=== PATIENT | male | born 1970 | race Caucasian/White ===

== ENCOUNTER 2017-06-30 13:47 | Inpatient (IN) | payer OTHER ==
[2017-06-30 14:25] VITALS: BMI 28.7
--- NOTE | 2017-06-30 17:58 | HP ---
CIWA Score - CIWA Score Nausea/Vomitin Muscle Tremors: 3 Anxiety: 2 Agitation: 1-Slight > Activity Paroxysmal Sweats: 2 Orientation: 0-Oriented Tacttile Disturbances: 1-Very Mild Itch/Numbness Auditory Disturbances: 1-Very Mild Visual Disturbances: 1-Very Mild Sensitivity Headache: 2-Mild CIWA-Ar Total Score: 15 Admission ROS BHS - HPI Chief Complaint: WITHDRAWAL SYMPTOMS Allergies/Adverse Reactions: Allergies Allergy/AdvReac Type Severity Reaction Status Date / Time No Known Allergies Allergy Verified 06/30/17 17:03 History of Present Illness: 46 Y.O. MAN WITH AN EXTENSIVE HISTORY OF ALCOHOL, COCAINE, MARIJUANA AND XANAX DEPENDENCE IS HERE SEEKING DETOX. HE DOES NOT RECALL HAS LAST DETOX ADMISSION. LONGEST PERIOD CLEAN HAS BEEN 3 YEARS. Exam Limitations: No Limitations - Ebola screening Have you traveled outside of the country in the last 21 days: No Have you had contact with anyone from an Ebola affected area: No Have you been sick,other than usual withdrawal symptoms: No Do you have a fever: No - Review of Systems Constitutional: Chills, Diaphoresis, Night Sweats EENT: reports: Blurred Vision Respiratory: reports: No Symptoms reported Cardiac: reports: No Symptoms Reported GI: reports: Nausea : reports: No Symptoms Reported Musculoskeletal: reports: Back Pain, Joint Pain Integumentary: reports: No Symptoms Reported Neuro: reports: Tremors Endocrine: reports: No Symptoms Reported Hematology: reports: No Symptoms Reported Psychiatric: reports: Orientated x3, Depressed Other Systems: Reviewed and Negative Patient History - Patient Medical History Hx Anemia: No Hx Asthma: Yes Hx Chronic Obstructive Pulmonary Disease (COPD): No Hx Cancer: No Hx Cardiac Disorders: No Hx Congestive Heart Failure: No Hx Hypertension: No Hx Hypercholesterolemia: Yes (used lipitor 5 years ago, was told to d/c it and work on diet and exercise) Hx Pacemaker: No HX Cerebrovascular Accident: No Hx Seizures: No Hx Dementia: No Hx Diabetes: No Hx Gastrointestinal Disorders: Yes (acid reflux) Hx Liver Disease: No Hx Genitourinary Disorders: No Hx Sexually Transmitted Disorders: No Hx Renal Disease (ESRD): No Hx Thyroid Disease: No Hx Human Immunodeficiency Virus (HIV): No (12/10 last) Hx Hepatitis C: No Hx Depression: Yes Hx Suicide Attempt: Yes (Pt tried to overdose in 2012.) Hx Bipolar Disorder: Yes (was also diagnosed in the past ) Hx Schizophrenia: No - Patient Surgical History Past Surgical History: Yes Hx Neurologic Surgery: No Hx Cataract Extraction: No Hx Cardiac Surgery: No Hx Lung Surgery: No Hx Breast Surgery: No Hx Breast Biopsy: No Hx Abdominal Surgery: No Hx Appendectomy: No Hx Cholecystectomy: No Hx Genitourinary Surgery: No Hx Section: No Hx Orthopedic Surgery: Yes (L shoulder fx sx in 2014) Anesthesia Reaction: No - PPD History Previous Implant?: Yes Documented Results: Negative w/o proof Implanted On Prior R Admission?: Yes Date: 12/19/13 Results: 0 mm PPD to be Administered?: Yes - Reproductive History Patient is a Female of Child Bearing Age (11 -55 yrs old): No - Smoking Cessation Smoking history: Current some day smoker Have you smoked in the past 12 months: Yes Aproximately how many cigarettes per day: 1 Cigars Per Day: 0 Hx Chewing Tobacco Use: No Initiated information on smoking cessation: Yes 'Breaking Loose' booklet given: 06/30/17 - Substance & Tx. History Hx Alcohol Use: Yes Hx Substance Use: Yes Substance Use Type: Alcohol, Cocaine, Marijuana, Tranquilizers Hx Substance Use Treatment: Yes (DETOX: DOES NOT RECALL LAST ADMISSION BUT STATES IT WAS MANY YRS AGO ) - Substances Abused Alcohol Route: Oral Frequency: Daily Amount used: 2 6PKS MALT LIQUOR Age of first use: 14 Date of Last Use: 06/29/17 Marijuana/Hashish Route: Smoking Frequency: Daily Amount used: 7-8 BLUNTS Age of first use: 14 Date of Last Use: 06/29/17 Cocaine Route: Inhalation Frequency: Daily Amount used: 2 HITS Age of first use: 18 Date of Last Use: 06/29/17 Alprazolam (Xanax) Route: Oral Frequency: 3-6 times per week Amount used: 6MG Age of first use: 22 Date of Last Use: 06/27/17 Family Disease History - Family Disease History Family Disease History: Diabetes: Grandparent, Father (alcoholic and psych Hx., ,lung cancer), Mother, Heart Disease: Grandparent, CA: Grandparent, Father, Respiratory: Mother, Other: Father Admission Physical Exam BHS - Vital Signs Vital Signs: Vital Signs - 24 hr 06/30/17 14:11 Temperature 97 F L Pulse Rate 90 Respiratory 18 Rate Blood Pressure 146/87 - Physical General Appearance: Yes: Irritable, Anxious HEENTM: Yes: Hearing grossly Normal, Normal ENT Inspection, Normocephalic Respiratory: Yes: Chest Non-Tender, Lungs Clear, Normal Breath Sounds, No Respiratory Distress, No Accessory Muscle Use Neck: Yes: No masses,lesions,Nodules, Trachea in good position Breast: Yes: Breast Exam Deferred Cardiology: Yes: Regular Rhythm, Regular Rate Abdominal: Yes: Normal Bowel Sounds, Non Tender, Flat Genitourinary: Yes: Other (NO COMPLAINTS REPORTED) Back: Yes: Normal Inspection Musculoskeletal: Yes: Joint Stiffness Extremities: Yes: Normal Capillary Refill, Normal Inspection, Normal Range of Motion, Non-Tender Neurological: Yes: Alert, Normal Mood/Affect, Normal Response Integumentary: Yes: Normal Color, Dry, Warm Lymphatic: Yes: Within Normal Limits - Diagnostic (1) Alcohol dependence with uncomplicated withdrawal Current Visit: Yes Status: Chronic (2) Sedative, hypnotic or anxiolytic dependence with withdrawal, uncomplicated Current Visit: Yes Status: Chronic (3) Cocaine dependence, uncomplicated Current Visit: Yes Status: Chronic (4) Cannabis dependence, uncomplicated Current Visit: Yes Status: Chronic (5) GERD (gastroesophageal reflux disease) Current Visit: Yes Status: Chronic Cleared for Admission [facility] - Detox or Rehab [facility] Level of Care: Medically Managed Detox Regimen/Protocol: Valium S Breath Alcohol Content Breath Alcohol Content: 0 Urine Drug Screen - Results Drug Screen Negative: No Urine Drug Screen Results: THC-Marijuana, ERIKA-Cocaine, BZO-Benzodiazepines
[2017-06-30] MEDS ORDERED: MENTHOL/PHENOL 1 EACH UD MM PRN (18:13)
[2017-06-30] MEDS ORDERED: diazePAM 5 MG TABLET PO ONE (18:13)
[2017-06-30] MEDS ORDERED: MAGNESIUM HYDROX 2400MG/30ML ORAL SUSPENSION 30 ML CUP PO PRN (18:13)
[2017-06-30] MEDS ORDERED: MAGNESIUM CITRATE 300 ML BOTTLE PO PRN (18:13)
[2017-06-30] MEDS ORDERED: IBUPROFEN 400 MG TABLET (FP) PO PRN (18:13)
[2017-06-30] MEDS ORDERED: LOPERAMIDE HCL 2 MG CAPSULE PO PRN (18:13)
[2017-06-30] MEDS ORDERED: P-EPHED 60MG/TRIPROLIDI 2.5MG TABLET PO PRN (18:13)
[2017-06-30] MEDS ORDERED: MAG HYDROX/AL HYDROX/SIMETH 30 ML UNIT-DOSE CUP PO PRN (18:13)
[2017-06-30] MEDS ORDERED: hydrOXYzine PAMOATE 50 MG CAPSULE (FP) PO PRN (18:13)
[2017-06-30] MEDS ORDERED: ACETAMINOPHEN 325 MG TABLET (FP) PO PRN (18:13)
[2017-06-30] MEDS ORDERED: guaiFENesin/D-METHORPHAN HB 10 ML UNIT-DOSE CUPS PO PRN (18:13)
[2017-06-30] MEDS ORDERED: ALBUTEROL SO4 18 GM HFA INHALER IH PRN (18:15)
[2017-06-30] MEDS: diazePAM 5 MG TABLET PO SCH (22:41)
[2017-06-30] MEDS: THIAMINE HCL 100 MG TABLET (FP) PO SCH (22:41)
[2017-06-30 22:45] LABS: URINE APPEARANCE CLEAR; URINE BILIRUBIN NEGATIVE (<2.0 mg/dL); URINE BLOOD NEGATIVE (NEGATIVE); URINE COLOR LTYELLOW; URINE GLUCOSE (UA) NEGATIVE (NEGATIVE); URINE KETONE NEGATIVE (NEGATIVE); URINE LEUK ESTERASE NEGATIVE (NEGATIVE); URINE NITRITE NEGATIVE (NEGATIVE); URINE PROTEIN NEGATIVE (NEGATIVE); URINE UROBILINOGEN NEGATIVE mg/dL (0.2-1.0)
[2017-06-30] MEDS ORDERED: ZOLPIDEM TARTRATE 10 MG TABLET (PARK CARE ONLY) PO ONE (23:00)
[2017-07-01] MEDS: diazePAM 5 MG TABLET PO SCH ×3 (05:19→22:28)
[2017-07-01] MEDS: PANTOPRAZOLE 40 MG TABLET (FP) PO SCH (09:58)
[2017-07-01] MEDS: diazePAM 5 MG TABLET PO PRN (09:58)
[2017-07-01] MEDS: PRENATAL VITAMINS W/ FOLIC ACID TABLET (FP) PO SCH (09:59)
[2017-07-01 10:18] LABS: HEMATOCRIT 43.2 % (35.4-49); HEMOGLOBIN 14.3 GM/dL (11.7-16.9); MCH 28.2 pg (25.7-33.7); MCHC 33.2 g/dl (32.0-35.9); MEAN CELL VOLUME 84.8 fl (80-96); MEAN PLT VOLUME 8.8 fl (7.5-11.1); PLATELET COUNT 192 K/MM3 (134-434); RBC 5.09 M/mm3 (4.00-5.60); RDW 13.7 % (11.9-15.9); WHITE BLOOD COUNT 7.4 K/mm3 (4.0-10.0)
[2017-07-01 10:58] LABS: ALBUMIN 3.7 g/dl (3.4-5.0); ANION GAP 11 (8-16); BLOOD UREA NITROGEN 10 mg/dL (7-18); CHLORIDE 102 mmol/L (98-107); CO2 27 mmol/L (21-32); CREATININE 0.8 mg/dL (0.7-1.3); GLUCOSE,RANDOM 91 mg/dL (74-106); POTASSIUM 4.4 mmol/L (3.5-5.1); SGOT/AST 20 U/L (15-37); SGPT/ALT 21 U/L (12-78); SODIUM 140 mmol/L (136-145)
[2017-07-01 11:00] LABS: ALK PHOS 114 U/L (45-117); BILIRUBIN,TOTAL 0.6 mg/dL (0.2-1.0); TOT PROT 7.2 g/dl (6.4-8.2)
--- NOTE | 2017-07-01 11:07 | EKG ---
Test Reason : Blood Pressure : / mmHG Vent. Rate : 074 BPM Atrial Rate : 074 BPM P-R Int : 140 ms QRS Dur : 084 ms QT Int : 420 ms P-R-T Axes : 060 047 043 degrees QTc Int : 466 ms NORMAL SINUS RHYTHM NORMAL ECG WHEN COMPARED WITH ECG OF 30-JUN-2017 20:18, NO SIGNIFICANT CHANGE WAS FOUND Confirmed by PORFIRIO DELGADILLO MD ([id number]) on 07/01/2017 11:07:28 AM Referred By: Confirmed By:PORFIRIO DELGADILLO MD
--- NOTE | 2017-07-01 11:07 | EKG ---
Test Reason : Blood Pressure : / mmHG Vent. Rate : 091 BPM Atrial Rate : 091 BPM P-R Int : 140 ms QRS Dur : 078 ms QT Int : 392 ms P-R-T Axes : 071 050 054 degrees QTc Int : 482 ms NORMAL SINUS RHYTHM PROLONGED QT ABNORMAL ECG NO PREVIOUS ECGS AVAILABLE Confirmed by ELIE BERNABE, PORFIRIO ([id number]) on 07/01/2017 11:07:33 AM Referred By: Confirmed By:PORFIRIO DELGADILLO MD
--- NOTE | 2017-07-01 11:30 | CONSULT ---
[facility] Psychiatric Consult - Data Date of interview: 07/01/17 Admission source: [facility] Identifying data: Pt. is a 46 year old single male, without kids, disabled, currently homeless and not receiving any financial assistance. This is one of multiple admissions for patient. Pt. admitted to detox for alcohol , cannabis, cocaine and benzodiazepine dependence. Substance Abuse History: - Smoking Cessation. Smoking history: Former smoker. Have you smoked in the past 12 months: Yes. Aproximately how many cigarettes per day: 2. Cigars Per Day: 0. Hx Chewing Tobacco Use: No. Initiated information on smoking cessation: Yes. 'Breaking Loose' booklet given: . - Substance & Tx. History. Hx Alcohol Use: Yes. Hx Substance Use: Yes. Substance Use Type: Alcohol, Cocaine, Marijuana. Hx Substance Use Treatment: Yes (DETOX AND REHAB: 02/2016). - Substances Abused. Cocaine. Route: Inhalation. Frequency: 3-6 times per week. Amount used: 2 GRAMS. Age of first use: 23. Date of Last Use: 06/29/17. etoh. Route: Oral. Frequency: Daily. Amount used: 1 pint. Age of first use: 12. Date of Last Use: . MARIJUANA. Route: Smoking. Frequency: 1-2 times per week. Amount used : 1/2 OZ. Age of first use: 12. Date of Last Use: 06/29/17 Medical History: Asthma, hypercholesterolemia, Acid reflux Psychiatric History: Pt. presents with an unclear psychiatric history, unable to give a cohesive history of his psychiatric history. Pt. reports h/o "alot" of psychiatric hospitalization. Most recently at a hospital in [place] "years ago."Pt. denies h/o outpatient care. States he has a history of depression and has been on "all the medications." Pt denies h/o suicide attempt. Pt. currently denies suicidal and homcidial ideation. Pt. concluded our conversation by stating " i don't want any medications." As per entries from Dr. Salter and Dr. Carlos, patient has a history of Bipolar disorder and has a history of nonadherence to medications and outpatient care. Physical/Sexual Abuse/Trauma History: Denies. Mental Status Exam - Mental Status Exam Alert and Oriented to: Time, Place, Person Cognitive Function: Good Patient Appearance: Unkempt Mood: Withdrawn Affect: Mood Congruent Patient Behavior: Fatigued, Guarded, Asleep (Pt. able to complete interview when awaken) Speech Pattern: Delayed Voice Loudness: Moderately Soft/Quiet Thought Process: Goal Oriented Thought Disorder: Not Present Hallucinations: Denies Suicidal Ideation: Denies Homicidal Ideation: Denies Insight/Judgement: Poor Sleep: Fair Appetite: Fair Muscle strength/Tone: Normal Gait/Station: Other (Did not observe patient's gait.) Psychiatric Findings - Problem List ([place] 1, 2,3) (1) Alcohol dependence with uncomplicated withdrawal Current Visit: Yes Status: Acute (2) Cannabis dependence, uncomplicated Current Visit: Yes Status: Acute (3) Cocaine dependence, uncomplicated Current Visit: Yes Status: Acute (4) Sedative, hypnotic or anxiolytic dependence with withdrawal, uncomplicated Current Visit: Yes Status: Acute (5) Substance induced mood disorder Current Visit: Yes Status: Acute (6) Bipolar II disorder Current Visit: No Status: Chronic Comment: history. - Initial Treatment Plan Initial Treatment Plan: Psychoeducation provided. Detoxification provided. Observation.
--- NOTE | 2017-07-01 16:52 | PN ---
[facility] CIWA - CIWA Score Nausea/Vomitin-No Nausea/No Vomiting Muscle Tremors: 3 Anxiety: 4-Mod. Anxious/Guarded Agitation: 1-Slight > Activity Paroxysmal Sweats: 3 Orientation: 0-Oriented Tacttile Disturbances: 3-Moderate Itch/Numb/Burn Auditory Disturbances: 0-None Visual Disturbances: 2-Mild Sensitivity Headache: 0-None Present CIWA-Ar Total Score: 16 BHS Progress Note (SOAP) Subjective: Sweating, Tremors, Body Aches, Anxious. Objective: PATIENT A & O X 3. NO ACUTE DISTRESS. 07/01/17 16:53 Vital Signs Temperature 97.2 F L 07/01/17 14:11 Pulse Rate 88 07/01/17 14:11 Respiratory Rate 18 07/01/17 14:11 Blood Pressure 132/90 07/01/17 14:11 O2 Sat by Pulse Oximetry (%) Laboratory Tests 06/30/17 07/01/17 07/01/17 22:30 07:00 07:00 WBC 7.4 RBC 5.09 Hgb 14.3 Hct 43.2 MCV 84.8 MCH 28.2 MCHC 33.2 RDW 13.7 Plt Count 192 MPV 8.8 Sodium Potassium Chloride Carbon Dioxide Anion Gap BUN Creatinine Creat Clearance w eGFR Random Glucose Calcium Total Bilirubin AST ALT Alkaline Phosphatase Total Protein Albumin Urine Color Ltyellow Urine Appearance Clear Urine pH 5.0 Ur Specific [place] 1.032 Urine Protein Negative Urine Glucose (UA) Negative Urine Ketones Negative Urine Blood Negative Urine Nitrite Negative Urine Bilirubin Negative Urine Urobilinogen Negative Ur Leukocyte Esterase Negative RPR Titer HIV 1&2 Antibody Screen Negative HIV P24 Antigen Negative 07/01/17 07/01/17 07:00 07:00 WBC RBC Hgb Hct MCV MCH MCHC RDW Plt Count MPV Sodium 140 Potassium 4.4 Chloride 102 Carbon Dioxide 27 Anion Gap 11 BUN 10 Creatinine 0.8 D Creat Clearance w eGFR > 60 Random Glucose 91 Calcium 9.0 Total Bilirubin 0.6 AST 20 ALT 21 D Alkaline Phosphatase 114 D Total Protein 7.2 Albumin 3.7 Urine Color Urine Appearance Urine pH Ur Specific [place] Urine Protein Urine Glucose (UA) Urine Ketones Urine Blood Urine Nitrite Urine Bilirubin Urine Urobilinogen Ur Leukocyte Esterase RPR Titer Nonreactive HIV 1&2 Antibody Screen HIV P24 Antigen LABS NOTED. Assessment: 07/01/17 16:53 WITHDRAWAL SYMPTOMS. Plan: CONTINUE DETOX.
[2017-07-01] MEDS: THIAMINE HCL 100 MG TABLET (FP) PO SCH (22:28)
[2017-07-01] MEDS: MELATONIN 5 MG TABLETS PO PRN (22:28)
[2017-07-02] MEDS: diazePAM 5 MG TABLET PO SCH ×2 (10:25→22:33)
[2017-07-02] MEDS: PRENATAL VITAMINS W/ FOLIC ACID TABLET (FP) PO SCH (10:25)
[2017-07-02] MEDS: PANTOPRAZOLE 40 MG TABLET (FP) PO SCH (10:26)
[2017-07-02] MEDS ORDERED: TETRAHYDROZOLINE HCL EYE DROPS OU ONE (10:30)
--- NOTE | 2017-07-02 11:37 | PN ---
S CIWA - CIWA Score Nausea/Vomitin-No Nausea/No Vomiting Muscle Tremors: 4-Moderate,w/Arms Extend Anxiety: 5 Agitation: 4-Moderately Restless Paroxysmal Sweats: 1-Minimal Palms Moist Orientation: 0-Oriented Tacttile Disturbances: 0-None Auditory Disturbances: 0-None Visual Disturbances: 0-None Headache: 0-None Present CIWA-Ar Total Score: 14 BHS Progress Note (SOAP) Subjective: ANXIETY,IRRITABILITY,AGITATIONS,EYE IRRITATION/DRY EYES, BODY ACHES, HEARTBURN Objective: 07/02/17 11:35 Vital Signs Temperature 97.3 F L 07/02/17 09:19 Pulse Rate 73 07/02/17 09:19 Respiratory Rate 18 07/02/17 09:19 Blood Pressure 141/89 07/02/17 09:19 O2 Sat by Pulse Oximetry (%) Laboratory Last Values WBC 7.4 K/mm3 (4.0-10.0) 07/01/17 07:00 RBC 5.09 M/mm3 (4.00-5.60) 07/01/17 07:00 Hgb 14.3 GM/dL (11.7-16.9) 07/01/17 07:00 Hct 43.2 % (35.4-49) 07/01/17 07:00 MCV 84.8 fl (80-96) 07/01/17 07:00 MCH 28.2 pg (25.7-33.7) 07/01/17 07:00 MCHC 33.2 g/dl (32.0-35.9) 07/01/17 07:00 RDW 13.7 % (11.9-15.9) 07/01/17 07:00 Plt Count 192 K/MM3 (134-434) 07/01/17 07:00 MPV 8.8 fl (7.5-11.1) 07/01/17 07:00 Sodium 140 mmol/L (136-145) 07/01/17 07:00 Potassium 4.4 mmol/L (3.5-5.1) 07/01/17 07:00 Chloride 102 mmol/L (98-107) 07/01/17 07:00 Carbon Dioxide 27 mmol/L (21-32) 07/01/17 07:00 Anion Gap 11 (8-16) 07/01/17 07:00 BUN 10 mg/dL (7-18) 07/01/17 07:00 Creatinine 0.8 mg/dL (0.7-1.3) D 07/01/17 07:00 Creat Clearance w eGFR > 60 (>60) 07/01/17 07:00 Random Glucose 91 mg/dL (74-106) 07/01/17 07:00 Calcium 9.0 mg/dL (8.5-10.1) 07/01/17 07:00 Total Bilirubin 0.6 mg/dL (0.2-1.0) 07/01/17 07:00 AST 20 U/L (15-37) 07/01/17 07:00 ALT 21 U/L (12-78) D 07/01/17 07:00 Alkaline Phosphatase 114 U/L (45-117) D 07/01/17 07:00 Total Protein 7.2 g/dl (6.4-8.2) 07/01/17 07:00 Albumin 3.7 g/dl (3.4-5.0) 07/01/17 07:00 Urine Color Ltyellow 06/30/17 22:30 Urine Appearance Clear 06/30/17 22:30 Urine pH 5.0 (5.0-8.0) 06/30/17 22:30 Ur Specific [place] 1.032 (1.001-1.035) 06/30/17 22:30 Urine Protein Negative (NEGATIVE) 06/30/17 22:30 Urine Glucose (UA) Negative (NEGATIVE) 06/30/17 22:30 Urine Ketones Negative (NEGATIVE) 06/30/17 22:30 Urine Blood Negative (NEGATIVE) 06/30/17 22:30 Urine Nitrite Negative (NEGATIVE) 06/30/17 22:30 Urine Bilirubin Negative (<2.0 mg/dL) 06/30/17 22:30 Urine Urobilinogen Negative mg/dL (0.2-1.0) 06/30/17 22:30 Ur Leukocyte Esterase Negative (NEGATIVE) 06/30/17 22:30 RPR Titer Nonreactive (NONREACTIVE) 07/01/17 07:00 HIV 1&2 Antibody Screen Negative 07/01/17 07:00 HIV P24 Antigen Negative 07/01/17 07:00 Assessment: 04/06/18 11:36 WITHDRAWAL SX Plan: CONTINUE DETOX VISINE EYE DROPS DIRECTED INCREASE MOTRIN 600 MG PO Q6H PRN
[2017-07-02] MEDS: IBUPROFEN 600 MG TABLET (FP) PO PRN (11:41)
[2017-07-02] MEDS: CYCLOBENZAPRINE HCL 10 MG TABLET (FP) PO SCH ×2 (13:16→22:33)
[2017-07-02] MEDS: diazePAM 5 MG TABLET PO PRN (13:19)
[2017-07-02] MEDS: TETRAHYDROZOLINE HCL EYE DROPS OU SCH (22:33)
[2017-07-02] MEDS: MELATONIN 5 MG TABLETS PO PRN (22:34)
[2017-07-02] MEDS: THIAMINE HCL 100 MG TABLET (FP) PO SCH (22:43)
[2017-07-03] MEDS: CYCLOBENZAPRINE HCL 10 MG TABLET (FP) PO SCH ×2 (06:48→22:31)
[2017-07-03] MEDS: diazePAM 5 MG TABLET PO PRN ×2 (09:08→17:59)
[2017-07-03] MEDS: diazePAM 5 MG TABLET PO SCH ×2 (10:18→22:31)
[2017-07-03] MEDS: PANTOPRAZOLE 40 MG TABLET (FP) PO SCH (10:18)
[2017-07-03] MEDS: PRENATAL VITAMINS W/ FOLIC ACID TABLET (FP) PO SCH (10:18)
[2017-07-03] MEDS: TETRAHYDROZOLINE HCL EYE DROPS OU SCH ×2 (10:19→22:31)
[2017-07-03] MEDS ORDERED: CYCLOBENZAPRINE HCL 10 MG TABLET (FP) PO ONE (11:15)
--- NOTE | 2017-07-03 13:42 | PN ---
BHS Progress Note (SOAP) Subjective: Sweating, Body Aches, Anxious, Agitated. Objective: PATIENT A & O X 3, OBSERVED AMBULATING ON UNIT. NO ACUTE DISTRESS. 07/03/17 13:40 Vital Signs Temperature 95.8 F L 07/03/17 11:07 Pulse Rate 75 07/03/17 11:07 Respiratory Rate 18 07/03/17 11:07 Blood Pressure 120/86 07/03/17 11:07 O2 Sat by Pulse Oximetry (%) Laboratory Tests 06/30/17 07/01/17 07/01/17 22:30 07:00 07:00 WBC 7.4 RBC 5.09 Hgb 14.3 Hct 43.2 MCV 84.8 MCH 28.2 MCHC 33.2 RDW 13.7 Plt Count 192 MPV 8.8 Sodium Potassium Chloride Carbon Dioxide Anion Gap BUN Creatinine Creat Clearance w eGFR Random Glucose Calcium Total Bilirubin AST ALT Alkaline Phosphatase Total Protein Albumin Urine Color Ltyellow Urine Appearance Clear Urine pH 5.0 Ur Specific [place] 1.032 Urine Protein Negative Urine Glucose (UA) Negative Urine Ketones Negative Urine Blood Negative Urine Nitrite Negative Urine Bilirubin Negative Urine Urobilinogen Negative Ur Leukocyte Esterase Negative RPR Titer HIV 1&2 Antibody Screen Negative HIV P24 Antigen Negative 07/01/17 07/01/17 07:00 07:00 WBC RBC Hgb Hct MCV MCH MCHC RDW Plt Count MPV Sodium 140 Potassium 4.4 Chloride 102 Carbon Dioxide 27 Anion Gap 11 BUN 10 Creatinine 0.8 D Creat Clearance w eGFR > 60 Random Glucose 91 Calcium 9.0 Total Bilirubin 0.6 AST 20 ALT 21 D Alkaline Phosphatase 114 D Total Protein 7.2 Albumin 3.7 Urine Color Urine Appearance Urine pH Ur Specific [place] Urine Protein Urine Glucose (UA) Urine Ketones Urine Blood Urine Nitrite Urine Bilirubin Urine Urobilinogen Ur Leukocyte Esterase RPR Titer Nonreactive HIV 1&2 Antibody Screen HIV P24 Antigen labs noted. Assessment: 07/03/17 13:40 WITHDRAWAL SYMPTOMS. Plan: CONTINUE DETOX. INCREASE DAILY PO FLUID INTAKE.
[2017-07-03] MEDS: IBUPROFEN 600 MG TABLET (FP) PO PRN (17:59)
[2017-07-03] MEDS: THIAMINE HCL 100 MG TABLET (FP) PO SCH (22:31)
[2017-07-03] MEDS: MELATONIN 5 MG TABLETS PO PRN (22:31)
[2017-07-04] MEDS: CYCLOBENZAPRINE HCL 10 MG TABLET (FP) PO SCH ×2 (05:52→13:33)
[2017-07-04] MEDS ORDERED: diazePAM 5 MG TABLET PO SCH (10:00)
[2017-07-04] MEDS: PANTOPRAZOLE 40 MG TABLET (FP) PO SCH (10:32)
[2017-07-04] MEDS: TETRAHYDROZOLINE HCL EYE DROPS OU SCH (10:33)
[2017-07-04] MEDS: PRENATAL VITAMINS W/ FOLIC ACID TABLET (FP) PO SCH (10:33)
[2017-07-04 13:43] VITALS: BP 123/80; PULSE 84; TEMP 96.5
--- NOTE | 2017-07-04 13:46 | PN ---
BHS Progress Note (SOAP) Subjective: Headache, interrupted sleep Objective: 07/04/17 13:44 Last Vital Signs Temp Pulse Resp BP Pulse Ox 96.5 F L 84 18 123/80 07/04/17 13:42 07/04/17 13:42 07/04/17 13:42 07/04/17 13:42 Laboratory Tests 06/30/17 07/01/17 07/01/17 22:30 07:00 07:00 WBC 7.4 RBC 5.09 Hgb 14.3 Hct 43.2 MCV 84.8 MCH 28.2 MCHC 33.2 RDW 13.7 Plt Count 192 MPV 8.8 Sodium Potassium Chloride Carbon Dioxide Anion Gap BUN Creatinine Creat Clearance w eGFR Random Glucose Calcium Total Bilirubin AST ALT Alkaline Phosphatase Total Protein Albumin Urine Color Ltyellow Urine Appearance Clear Urine pH 5.0 Ur Specific [place] 1.032 Urine Protein Negative Urine Glucose (UA) Negative Urine Ketones Negative Urine Blood Negative Urine Nitrite Negative Urine Bilirubin Negative Urine Urobilinogen Negative Ur Leukocyte Esterase Negative RPR Titer HIV 1&2 Antibody Screen Negative HIV P24 Antigen Negative 07/01/17 07/01/17 07:00 07:00 WBC RBC Hgb Hct MCV MCH MCHC RDW Plt Count MPV Sodium 140 Potassium 4.4 Chloride 102 Carbon Dioxide 27 Anion Gap 11 BUN 10 Creatinine 0.8 D Creat Clearance w eGFR > 60 Random Glucose 91 Calcium 9.0 Total Bilirubin 0.6 AST 20 ALT 21 D Alkaline Phosphatase 114 D Total Protein 7.2 Albumin 3.7 Urine Color Urine Appearance Urine pH Ur Specific [place] Urine Protein Urine Glucose (UA) Urine Ketones Urine Blood Urine Nitrite Urine Bilirubin Urine Urobilinogen Ur Leukocyte Esterase RPR Titer Nonreactive HIV 1&2 Antibody Screen HIV P24 Antigen Labs noted Assessment: 07/04/17 13:44 Withdrawal symptoms Plan: Continue detox Encouraged to drink more water for hydration
--- NOTE | 2017-07-04 14:30 | DS ---
[facility] Detox Discharge Summary Admission Date: 06/30/17 Discharge Date: 07/04/17 - History Present History: Alcohol Dependence, Cannabis Dependence, Cocaine Dependence, Sedative Dependence Pertinent Past History: GERD - Physical Exam Results Vital Signs: Vital Signs Temperature 96.5 F L 07/04/17 13:42 Pulse Rate 84 07/04/17 13:42 Respiratory Rate 18 07/04/17 13:42 Blood Pressure 123/80 07/04/17 13:42 O2 Sat by Pulse Oximetry (%) Pertinent Admission Physical Exam Findings: Withdrawal symptoms Laboratory Tests 06/30/17 07/01/17 07/01/17 22:30 07:00 07:00 WBC 7.4 RBC 5.09 Hgb 14.3 Hct 43.2 MCV 84.8 MCH 28.2 MCHC 33.2 RDW 13.7 Plt Count 192 MPV 8.8 Sodium Potassium Chloride Carbon Dioxide Anion Gap BUN Creatinine Creat Clearance w eGFR Random Glucose Calcium Total Bilirubin AST ALT Alkaline Phosphatase Total Protein Albumin Urine Color Ltyellow Urine Appearance Clear Urine pH 5.0 Ur Specific [place] 1.032 Urine Protein Negative Urine Glucose (UA) Negative Urine Ketones Negative Urine Blood Negative Urine Nitrite Negative Urine Bilirubin Negative Urine Urobilinogen Negative Ur Leukocyte Esterase Negative RPR Titer HIV 1&2 Antibody Screen Negative HIV P24 Antigen Negative 07/01/17 07/01/17 07:00 07:00 WBC RBC Hgb Hct MCV MCH MCHC RDW Plt Count MPV Sodium 140 Potassium 4.4 Chloride 102 Carbon Dioxide 27 Anion Gap 11 BUN 10 Creatinine 0.8 D Creat Clearance w eGFR > 60 Random Glucose 91 Calcium 9.0 Total Bilirubin 0.6 AST 20 ALT 21 D Alkaline Phosphatase 114 D Total Protein 7.2 Albumin 3.7 Urine Color Urine Appearance Urine pH Ur Specific [place] Urine Protein Urine Glucose (UA) Urine Ketones Urine Blood Urine Nitrite Urine Bilirubin Urine Urobilinogen Ur Leukocyte Esterase RPR Titer Nonreactive HIV 1&2 Antibody Screen HIV P24 Antigen Labs noted - Treatment Hospital Course: Detox Protocol Followed, Detoxed Safely, Responded well, Discharged Condition Good - Medication Discharge Medications: Ambulatory Orders Albuterol Sulfate Inhaler - [Ventolin HFA Inhaler -] 2 inh PO Q4H PRN 12/22/13 Esomeprazole Mag Trihydrate [Nexium] 40 mg PO DAILY 12/22/13 Quetiapine Fumarate "Xr" [Seroquel Xr -] 100 mg PO HS 06/30/17 - Diagnosis (1) Alcohol dependence with uncomplicated withdrawal Current Visit: Yes Status: Acute (2) Cannabis dependence, uncomplicated Current Visit: Yes Status: Chronic (3) Cocaine dependence, uncomplicated Current Visit: Yes Status: Chronic (4) Sedative, hypnotic or anxiolytic dependence with withdrawal, uncomplicated Current Visit: Yes Status: Acute (5) Substance induced mood disorder Current Visit: Yes Status: Acute (6) GERD (gastroesophageal reflux disease) Current Visit: Yes Status: Chronic Qualifiers: Esophagitis presence: esophagitis presence not specified Qualified Code(s) : K21.9 - Gastro-esophageal reflux disease without esophagitis - AMA Did Patient Leave Against Medical Advice: No (Follow up with your PCP within 1- 2 week)
== END 2017-07-04 14:29 | disposition home or self-care (01) | DRG 774 ==
LOC: YASAS 13:47 → Y3N 17:06
PROVIDERS: ADMIT Internal Medicine; ATTEND Internal Medicine
PROC: HZ2ZZZZ Detoxification Services for Substance Abuse Treatment (ICD-10-PCS; principal; 2017-06-30)
DX: F13.230 Sedative, hypnotic or anxiolytic dependence with withdrawal, uncomplicated (principal); F10.230 Alcohol dependence with withdrawal, uncomplicated; F14.20 Cocaine dependence, uncomplicated; F12.20 Cannabis dependence, uncomplicated; F31.81 Bipolar II disorder; F19.24 Other psychoactive substance dependence with psychoactive substance-induced mood disorder; K21.9 Gastro-esophageal reflux disease without esophagitis; E78.00 Pure hypercholesterolemia, unspecified; Z91.5 Personal history of self-harm
CPT/HCPCS: 36415; 80053; 81003; 85027; 86593; 87389; 93005; 93010

== ENCOUNTER 2017-12-06 11:04 | Inpatient (IN) | payer OTHER ==
[2017-12-06 11:50] VITALS: BMI 27.2
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
[2017-12-06] MEDS ORDERED: ALBUTEROL SO4 8 GM HFA INHALER IH PRN (17:04)
[2017-12-06] MEDS ORDERED: MENTHOL/PHENOL 1 EACH UD MM PRN (17:12)
[2017-12-06] MEDS ORDERED: MAGNESIUM HYDROX 2400MG/30ML ORAL SUSPENSION 30 ML CUP PO PRN (17:12)
[2017-12-06] MEDS ORDERED: P-EPHED 60MG/TRIPROLIDI 2.5MG TABLET PO PRN (17:12)
[2017-12-06] MEDS ORDERED: ACETAMINOPHEN 325 MG TABLET (FP) PO PRN (17:12)
[2017-12-06] MEDS ORDERED: guaiFENesin/D-METHORPHAN HB 10 ML UNIT-DOSE CUPS PO PRN (17:12)
[2017-12-06] MEDS ORDERED: chlordiazePOXIDE HCL 25 MG CAPSULE PO PRN (17:12)
[2017-12-06] MEDS ORDERED: hydrOXYzine PAMOATE 50 MG CAPSULE (FP) PO PRN (17:12)
[2017-12-06] MEDS ORDERED: MAG HYDROX/AL HYDROX/SIMETH 30 ML UNIT-DOSE CUP PO PRN (17:12)
[2017-12-06] MEDS ORDERED: MAGNESIUM CITRATE 300 ML BOTTLE PO PRN (17:12)
[2017-12-06] MEDS ORDERED: LOPERAMIDE HCL 2 MG CAPSULE PO PRN (17:12)
[2017-12-06] MEDS ORDERED: chlordiazePOXIDE HCL 25 MG CAPSULE PO ONE (17:30)
[2017-12-06] MEDS ORDERED: MELATONIN 5 MG TABLETS PO PRN (22:00)
[2017-12-06] MEDS: chlordiazePOXIDE HCL 25 MG CAPSULE PO SCH (22:14)
[2017-12-06] MEDS: THIAMINE HCL 100 MG TABLET (FP) PO SCH (22:14)
[2017-12-06] MEDS: BENZOCAINE 20 % GEL TUBE MM PRN (22:15)
[2017-12-06] MEDS: IBUPROFEN 400 MG TABLET (FP) PO PRN (22:16)
[2017-12-06 23:25] LABS: URINE APPEARANCE SLCLOUDY; URINE BILIRUBIN NEGATIVE (<2.0 mg/dL); URINE COLOR YELLOW; URINE GLUCOSE (UA) NEGATIVE (NEGATIVE); URINE KETONE NEGATIVE (NEGATIVE); URINE LEUK ESTERASE NEGATIVE (NEGATIVE); URINE NITRITE NEGATIVE (NEGATIVE); URINE PROTEIN NEGATIVE (NEGATIVE); URINE UROBILINOGEN NEGATIVE mg/dL (0.2-1.0)
[2017-12-07] MEDS: chlordiazePOXIDE HCL 25 MG CAPSULE PO SCH ×4 (08:06→22:40)
--- NOTE | 2017-12-07 08:47 | CONSULT ---
[facility] Psychiatric Consult - Data Date of interview: 12/07/17 Admission source: [facility] Identifying data: Patient is a 46 year old single male, without children, unemployed, and currently homeless. This is one of multiple admissions for patient. Pt. admitted to for alcohol, cocaine, marijuana, and benzodiazepine dependence. Substance Abuse History: Smoking Cessation. Smoking history: Current some day smoker. Have you smoked in the past 12 months: Yes. Aproximately how many cigarettes per day: 1. Cigars Per Day: 0. Hx Chewing Tobacco Use: No. Initiated information on smoking cessation: Yes. 'Breaking Loose' booklet given : 12/06/17. - Substance & Tx. History. Hx Alcohol Use: Yes. Hx Substance Use : Yes. Substance Use Type: Alcohol, Cocaine, Marijuana, Tranquilizers. Hx Substance Use Treatment: Yes (Last detox [facility] - 07/04/17.). - Substances Abused. Cocaine. Route: Inhalation. Frequency: 1-2 times per week. Amount used: $40. Age of first use: 18. Date of Last Use: 12/04/17. Alcohol-vodka/beer. Route: Oral. Frequency: Daily. Amount used: 2 pts./3-6 pks. Age of first use: 16. Date of Last Use: 12/05/17. Xanax. Route: Oral. Frequency: 3-6 times per week. Amount used: 2 mg. Age of first use: 23. Date of Last Use: 12/04/17 Medical History: Asthma, hypercholesterolmia, Acid reflux, L shoulder fx in 2014 Psychiatric History: Patient reports two psychiatric hospitalizations. Most recent hospitalization was 6 years ago at [facility]. Pt. is also known to [facility]. Outpatient psychiatric services was most recently provided five years ago. Reports taking luding Depakote, Seroquel, Cymbalta, Zoloft, and trazodone in the past. Pt. is nonadherent to [facility]. Pt. reports poor sleep. Pt. denies h/o suicide attempt. Physical/Sexual Abuse/Trauma History: denies. Mental Status Exam - Mental Status Exam Alert and Oriented to: Time, Place, Person Cognitive Function: Good Patient Appearance: Well Groomed Mood: Euthymic Affect: Mood Congruent Patient Behavior: Cooperative Speech Pattern: Appropriate Voice Loudness: Normal Thought Process: Intact, Goal Oriented Thought Disorder: Not Present Hallucinations: Denies Suicidal Ideation: Denies Homicidal Ideation: Denies Insight/Judgement: Poor Sleep: Poorly Appetite: Fair Muscle strength/Tone: Normal Gait/Station: Other (Did not observe patient's gait.) Psychiatric Findings - Problem List ([place] 1, 2,3) (1) Cocaine dependence Current Visit: Yes Status: Active (2) Alcohol dependence with uncomplicated withdrawal Current Visit: Yes Status: Acute (3) Sedative, hypnotic or anxiolytic dependence with withdrawal, uncomplicated Current Visit: Yes Status: Acute (4) Cannabis dependence, uncomplicated Current Visit: Yes Status: Chronic (5) Bipolar II disorder Current Visit: Yes Status: Chronic Comment: history. - Initial Treatment Plan Initial Treatment Plan: Psychoeducation provided. Detoxification in progress. Trazodone 50mg qhs ordered for insomnia. Pt. made aware of the risk priapism when accepting trazodone. Verbal consent given.
[2017-12-07] MEDS: BENZOCAINE 20 % GEL TUBE MM PRN ×3 (09:31→22:41)
[2017-12-07 10:18] LABS: HEMATOCRIT 41.7 % (35.4-49); HEMOGLOBIN 13.4 GM/dL (11.7-16.9); MCH 27.8 pg (25.7-33.7); MCHC 32.1 g/dl (32.0-35.9); MEAN CELL VOLUME 86.5 fl (80-96); MEAN PLT VOLUME 8.9 fl (7.5-11.1); PLATELET COUNT 223 K/MM3 (134-434); RBC 4.82 M/mm3 (4.00-5.60); RDW 13.5 % (11.9-15.9); WHITE BLOOD COUNT 6.8 K/mm3 (4.0-10.0)
[2017-12-07] MEDS: PRENATAL VITAMINS W/ FOLIC ACID TABLET (FP) PO SCH (10:33)
[2017-12-07] MEDS: IBUPROFEN 400 MG TABLET (FP) PO PRN ×2 (10:34→17:32)
[2017-12-07 11:34] LABS: CHLORIDE 106 mmol/L (98-107); SODIUM 143 mmol/L (136-145)
[2017-12-07 11:57] LABS: ALBUMIN 3.6 g/dl (3.4-5.0); ALK PHOS 96 U/L (45-117); ANION GAP 7 MMOL/L (8-16); BILIRUBIN,TOTAL 0.4 mg/dL (0.2-1.0); BLOOD UREA NITROGEN 13 mg/dL (7-18); CALCIUM 8.8 mg/dL (8.5-10.1); CO2 30 mmol/L (21-32); CREATININE 0.8 mg/dL (0.7-1.3); GLUCOSE,RANDOM 72 mg/dL (74-106); SGPT/ALT 39 U/L (12-78); TOT PROT 6.9 g/dl (6.4-8.2)
[2017-12-07 12:16] LABS: POTASSIUM 4.2 mmol/L (3.5-5.1); SGOT/AST 30 U/L (15-37)
--- NOTE | 2017-12-07 13:14 | PN ---
S CIWA - CIWA Score Nausea/Vomitin-Mild Nausea/No Vomiting Muscle Tremors: 4-Moderate,w/Arms Extend Anxiety: 3 Agitation: 4-Moderately Restless Paroxysmal Sweats: 1-Minimal Palms Moist Orientation: 0-Oriented Tacttile Disturbances: 1-Very Mild Itch/Numbness Auditory Disturbances: 1-Very Mild Visual Disturbances: 0-None Headache: 1-Very Mild CIWA-Ar Total Score: 16 BHS Progress Note (SOAP) Subjective: tremor sweat shaking trouble sleep at night restlessness Objective: 12/07/17 13:14 Vital Signs Temperature 97.9 F 12/07/17 09:28 Pulse Rate 70 12/07/17 09:28 Respiratory Rate 18 12/07/17 09:28 Blood Pressure 149/95 12/07/17 09:28 O2 Sat by Pulse Oximetry (%) Laboratory Last Values WBC 6.8 K/mm3 (4.0-10.0) 12/07/17 06:00 RBC 4.82 M/mm3 (4.00-5.60) 12/07/17 06:00 Hgb 13.4 GM/dL (11.7-16.9) 12/07/17 06:00 Hct 41.7 % (35.4-49) 12/07/17 06:00 MCV 86.5 fl (80-96) 12/07/17 06:00 MCH 27.8 pg (25.7-33.7) 12/07/17 06:00 MCHC 32.1 g/dl (32.0-35.9) 12/07/17 06:00 RDW 13.5 % (11.9-15.9) 12/07/17 06:00 Plt Count 223 K/MM3 (134-434) 12/07/17 06:00 MPV 8.9 fl (7.5-11.1) 12/07/17 06:00 Sodium 143 mmol/L (136-145) 12/07/17 06:00 Potassium 4.2 mmol/L (3.5-5.1) 12/07/17 06:00 Chloride 106 mmol/L (98-107) 12/07/17 06:00 Carbon Dioxide 30 mmol/L (21-32) 12/07/17 06:00 Anion Gap 7 MMOL/L (8-16) L 12/07/17 06:00 BUN 13 mg/dL (7-18) 12/07/17 06:00 Creatinine 0.8 mg/dL (0.7-1.3) 12/07/17 06:00 Creat Clearance w eGFR > 60 (>60) 12/07/17 06:00 Random Glucose 72 mg/dL (74-106) L D 12/07/17 06:00 Calcium 8.8 mg/dL (8.5-10.1) 12/07/17 06:00 Total Bilirubin 0.4 mg/dL (0.2-1.0) 12/07/17 06:00 AST 30 U/L (15-37) D 12/07/17 06:00 ALT 39 U/L (12-78) D 12/07/17 06:00 Alkaline Phosphatase 96 U/L (45-117) 12/07/17 06:00 Total Protein 6.9 g/dl (6.4-8.2) 12/07/17 06:00 Albumin 3.6 g/dl (3.4-5.0) 12/07/17 06:00 Urine Color Yellow 12/06/17 23:08 Urine Appearance Slcloudy 12/06/17 23:08 Urine pH 6.0 (5.0-8.0) 12/06/17 23:08 Ur Specific [place] 1.024 (1.001-1.035) 12/06/17 23:08 Urine Protein Negative (NEGATIVE) 12/06/17 23:08 Urine Glucose (UA) Negative (NEGATIVE) 12/06/17 23:08 Urine Ketones Negative (NEGATIVE) 12/06/17 23:08 Urine Blood Negative (NEGATIVE) 12/06/17 23:08 Urine Nitrite Negative (NEGATIVE) 12/06/17 23:08 Urine Bilirubin Negative (<2.0 mg/dL) 12/06/17 23:08 Urine Urobilinogen Negative mg/dL (0.2-1.0) 12/06/17 23:08 Ur Leukocyte Esterase Negative (NEGATIVE) 12/06/17 23:08 RPR Titer Nonreactive (NONREACTIVE) 12/07/17 06:00 HIV 1&2 Antibody Screen Negative 12/06/17 14:00 HIV P24 Antigen Negative 12/06/17 14:00 lab noted Assessment: 12/07/17 13:15 withdrawal sx Plan: continue detox
--- NOTE | 2017-12-07 17:23 | EKG ---
Test Reason : Blood Pressure : / mmHG Vent. Rate : 070 BPM Atrial Rate : 070 BPM P-R Int : 136 ms QRS Dur : 086 ms QT Int : 434 ms P-R-T Axes : 026 020 011 degrees QTc Int : 468 ms NORMAL SINUS RHYTHM WITH SINUS ARRHYTHMIA NORMAL ECG Confirmed by MD KETTY, AUSTYN ([id number]) on 12/07/2017 5:23:23 PM Referred By: Confirmed By:AUSTYN HDEZ MD
[2017-12-07] MEDS: traZODone HCL 50 MG TABLET (FP) PO SCH (22:40)
[2017-12-07] MEDS: THIAMINE HCL 100 MG TABLET (FP) PO SCH (22:40)
[2017-12-08] MEDS: chlordiazePOXIDE HCL 25 MG CAPSULE PO SCH ×3 (05:50→17:17)
[2017-12-08] MEDS: IBUPROFEN 400 MG TABLET (FP) PO PRN ×2 (05:51→17:17)
[2017-12-08] MEDS: BENZOCAINE 20 % GEL TUBE MM PRN ×3 (05:52→22:33)
[2017-12-08] MEDS: PRENATAL VITAMINS W/ FOLIC ACID TABLET (FP) PO SCH (10:16)
--- NOTE | 2017-12-08 12:46 | PN ---
S CIWA - CIWA Score Nausea/Vomitin-Mild Nausea/No Vomiting Muscle Tremors: 4-Moderate,w/Arms Extend Anxiety: 3 Agitation: 4-Moderately Restless Paroxysmal Sweats: 1-Minimal Palms Moist Orientation: 0-Oriented Tacttile Disturbances: 0-None Auditory Disturbances: 0-None Visual Disturbances: 0-None Headache: 0-None Present CIWA-Ar Total Score: 13 BHS Progress Note (SOAP) Subjective: tremor anxiety sweat restlessness Objective: 12/08/17 12:45 Vital Signs Temperature 97.7 F 12/08/17 09:24 Pulse Rate 69 12/08/17 09:24 Respiratory Rate 18 12/08/17 09:24 Blood Pressure 123/85 12/08/17 09:24 O2 Sat by Pulse Oximetry (%) Laboratory Last Values WBC 6.8 K/mm3 (4.0-10.0) 12/07/17 06:00 RBC 4.82 M/mm3 (4.00-5.60) 12/07/17 06:00 Hgb 13.4 GM/dL (11.7-16.9) 12/07/17 06:00 Hct 41.7 % (35.4-49) 12/07/17 06:00 MCV 86.5 fl (80-96) 12/07/17 06:00 MCH 27.8 pg (25.7-33.7) 12/07/17 06:00 MCHC 32.1 g/dl (32.0-35.9) 12/07/17 06:00 RDW 13.5 % (11.9-15.9) 12/07/17 06:00 Plt Count 223 K/MM3 (134-434) 12/07/17 06:00 MPV 8.9 fl (7.5-11.1) 12/07/17 06:00 Sodium 143 mmol/L (136-145) 12/07/17 06:00 Potassium 4.2 mmol/L (3.5-5.1) 12/07/17 06:00 Chloride 106 mmol/L (98-107) 12/07/17 06:00 Carbon Dioxide 30 mmol/L (21-32) 12/07/17 06:00 Anion Gap 7 MMOL/L (8-16) L 12/07/17 06:00 BUN 13 mg/dL (7-18) 12/07/17 06:00 Creatinine 0.8 mg/dL (0.7-1.3) 12/07/17 06:00 Creat Clearance w eGFR > 60 (>60) 12/07/17 06:00 Random Glucose 72 mg/dL (74-106) L D 12/07/17 06:00 Calcium 8.8 mg/dL (8.5-10.1) 12/07/17 06:00 Total Bilirubin 0.4 mg/dL (0.2-1.0) 12/07/17 06:00 AST 30 U/L (15-37) D 12/07/17 06:00 ALT 39 U/L (12-78) D 12/07/17 06:00 Alkaline Phosphatase 96 U/L (45-117) 12/07/17 06:00 Total Protein 6.9 g/dl (6.4-8.2) 12/07/17 06:00 Albumin 3.6 g/dl (3.4-5.0) 12/07/17 06:00 Urine Color Yellow 12/06/17 23:08 Urine Appearance Slcloudy 12/06/17 23:08 Urine pH 6.0 (5.0-8.0) 12/06/17 23:08 Ur Specific [place] 1.024 (1.001-1.035) 12/06/17 23:08 Urine Protein Negative (NEGATIVE) 12/06/17 23:08 Urine Glucose (UA) Negative (NEGATIVE) 12/06/17 23:08 Urine Ketones Negative (NEGATIVE) 12/06/17 23:08 Urine Blood Negative (NEGATIVE) 12/06/17 23:08 Urine Nitrite Negative (NEGATIVE) 12/06/17 23:08 Urine Bilirubin Negative (<2.0 mg/dL) 12/06/17 23:08 Urine Urobilinogen Negative mg/dL (0.2-1.0) 12/06/17 23:08 Ur Leukocyte Esterase Negative (NEGATIVE) 12/06/17 23:08 RPR Titer Nonreactive (NONREACTIVE) 12/07/17 06:00 HIV 1&2 Antibody Screen Negative 12/06/17 14:00 HIV P24 Antigen Negative 12/06/17 14:00 lab noted Assessment: 12/08/17 12:45 withdrawal sx Plan: continue detox
[2017-12-08] MEDS: chlordiazePOXIDE 5 MG CAPSULE PO SCH (22:33)
[2017-12-08] MEDS: THIAMINE HCL 100 MG TABLET (FP) PO SCH (22:33)
[2017-12-08] MEDS: traZODone HCL 50 MG TABLET (FP) PO SCH (22:33)
[2017-12-09] MEDS: chlordiazePOXIDE 5 MG CAPSULE PO SCH ×2 (05:41→11:07)
[2017-12-09] MEDS: BENZOCAINE 20 % GEL TUBE MM PRN ×2 (05:42→11:08)
[2017-12-09] MEDS: IBUPROFEN 400 MG TABLET (FP) PO PRN ×2 (05:43→11:10)
[2017-12-09 09:09] VITALS: BP 129/84; PULSE 79; TEMP 97.7
[2017-12-09] MEDS: PRENATAL VITAMINS W/ FOLIC ACID TABLET (FP) PO SCH (11:07)
--- NOTE | 2017-12-09 12:39 | DS ---
[facility] Detox Discharge Summary Admission Date: 12/06/17 Discharge Date: 12/09/17 - History Present History: Alcohol Dependence Additional Comments: 46 years old male admitted 12/04/17 for alcohol withdrawal sx reported feeling better denies alcohol withdrawal sx wants to go home leaf [facility] picker [facility] patient agrees to return to [facility] 12/10/17 - Physical Exam Results Vital Signs: Vital Signs Temperature 97.7 F 12/09/17 09:08 Pulse Rate 79 12/09/17 09:08 Respiratory Rate 18 12/09/17 09:08 Blood Pressure 129/84 12/09/17 09:08 O2 Sat by Pulse Oximetry (%) Pertinent Admission Physical Exam Findings: alcohol withdrawal sx Vital Signs Temperature 97.7 F 12/09/17 09:08 Pulse Rate 79 12/09/17 09:08 Respiratory Rate 18 12/09/17 09:08 Blood Pressure 129/84 12/09/17 09:08 O2 Sat by Pulse Oximetry (%) Laboratory Last Values WBC 6.8 K/mm3 (4.0-10.0) 12/07/17 06:00 RBC 4.82 M/mm3 (4.00-5.60) 12/07/17 06:00 Hgb 13.4 GM/dL (11.7-16.9) 12/07/17 06:00 Hct 41.7 % (35.4-49) 12/07/17 06:00 MCV 86.5 fl (80-96) 12/07/17 06:00 MCH 27.8 pg (25.7-33.7) 12/07/17 06:00 MCHC 32.1 g/dl (32.0-35.9) 12/07/17 06:00 RDW 13.5 % (11.9-15.9) 12/07/17 06:00 Plt Count 223 K/MM3 (134-434) 12/07/17 06:00 MPV 8.9 fl (7.5-11.1) 12/07/17 06:00 Sodium 143 mmol/L (136-145) 12/07/17 06:00 Potassium 4.2 mmol/L (3.5-5.1) 12/07/17 06:00 Chloride 106 mmol/L (98-107) 12/07/17 06:00 Carbon Dioxide 30 mmol/L (21-32) 12/07/17 06:00 Anion Gap 7 MMOL/L (8-16) L 12/07/17 06:00 BUN 13 mg/dL (7-18) 12/07/17 06:00 Creatinine 0.8 mg/dL (0.7-1.3) 12/07/17 06:00 Creat Clearance w eGFR > 60 (>60) 12/07/17 06:00 Random Glucose 72 mg/dL (74-106) L D 12/07/17 06:00 Calcium 8.8 mg/dL (8.5-10.1) 12/07/17 06:00 Total Bilirubin 0.4 mg/dL (0.2-1.0) 12/07/17 06:00 AST 30 U/L (15-37) D 12/07/17 06:00 ALT 39 U/L (12-78) D 12/07/17 06:00 Alkaline Phosphatase 96 U/L (45-117) 12/07/17 06:00 Total Protein 6.9 g/dl (6.4-8.2) 12/07/17 06:00 Albumin 3.6 g/dl (3.4-5.0) 12/07/17 06:00 Urine Color Yellow 12/06/17 23:08 Urine Appearance Slcloudy 12/06/17 23:08 Urine pH 6.0 (5.0-8.0) 12/06/17 23:08 Ur Specific [place] 1.024 (1.001-1.035) 12/06/17 23:08 Urine Protein Negative (NEGATIVE) 12/06/17 23:08 Urine Glucose (UA) Negative (NEGATIVE) 12/06/17 23:08 Urine Ketones Negative (NEGATIVE) 12/06/17 23:08 Urine Blood Negative (NEGATIVE) 12/06/17 23:08 Urine Nitrite Negative (NEGATIVE) 12/06/17 23:08 Urine Bilirubin Negative (<2.0 mg/dL) 12/06/17 23:08 Urine Urobilinogen Negative mg/dL (0.2-1.0) 12/06/17 23:08 Ur Leukocyte Esterase Negative (NEGATIVE) 12/06/17 23:08 RPR Titer Nonreactive (NONREACTIVE) 12/07/17 06:00 HIV 1&2 Antibody Screen Negative 12/06/17 14:00 HIV P24 Antigen Negative 12/06/17 14:00 lab noted - Treatment Hospital Course: Detox Protocol Followed, Detoxed Safely, Responded well, Discharged Condition Good, Rehab Referral Accepted - Medication Discharge Medications: Ambulatory Orders Albuterol Sulfate Inhaler - [Ventolin HFA Inhaler -] 2 inh PO Q4H PRN 12/22/13 Esomeprazole Mag Trihydrate [Nexium] 40 mg PO DAILY 12/22/13 traZODone HCL [Trazodone HCl] 100 mg PO HS 12/06/17 - AMA Did Patient Leave Against Medical Advice: No
[2017-12-09] MEDS ORDERED: chlordiazePOXIDE HCL 10 MG CAPSULE PO SCH (23:00)
== END 2017-12-09 01:02 | disposition home or self-care (01) | DRG 774 ==
LOC: YASAS 11:04 → Y6N 17:13
PROC: HZ2ZZZZ Detoxification Services for Substance Abuse Treatment (ICD-10-PCS; principal; 2017-12-06)
DX: F10.230 Alcohol dependence with withdrawal, uncomplicated (principal); F13.230 Sedative, hypnotic or anxiolytic dependence with withdrawal, uncomplicated; F14.20 Cocaine dependence, uncomplicated; F12.20 Cannabis dependence, uncomplicated; F17.213 Nicotine dependence, cigarettes, with withdrawal; F31.81 Bipolar II disorder; E78.00 Pure hypercholesterolemia, unspecified; I10 Essential (primary) hypertension; K21.9 Gastro-esophageal reflux disease without esophagitis; J45.909 Unspecified asthma, uncomplicated; Z91.5 Personal history of self-harm
CPT/HCPCS: 36415; 80053; 81003; 85027; 86593; 87389; 93005; 93010

== ENCOUNTER 2020-12-02 13:14 | Inpatient (IN) | payer OTHER ==
[2020-12-02 14:03] VITALS: BMI 31.1
[2020-12-02] MEDS ORDERED: ALBUTEROL SO4 HFA INHALER IH PRN (16:59)
[2020-12-02] MEDS ORDERED: MAG HYDROX/AL HYDROX/SIMETH 30 ML UNIT-DOSE CUP PO PRN (17:08)
[2020-12-02] MEDS ORDERED: MAGNESIUM CITRATE 300 ML BOTTLE PO PRN (17:08)
[2020-12-02] MEDS ORDERED: MAGNESIUM HYDROX 2400MG/30ML ORAL SUSPENSION 30 ML CUP PO PRN (17:08)
[2020-12-02] MEDS ORDERED: BISMUTH SUBSALICYLATE 524 MG/30 ML PO PRN (17:08)
[2020-12-02] MEDS ORDERED: ACETAMINOPHEN 325 MG TABLET (FP) PO PRN (17:08)
[2020-12-02] MEDS ORDERED: MENTHOL/PHENOL 1 EACH UD MM PRN (17:08)
[2020-12-02] MEDS ORDERED: hydrOXYzine PAMOATE 25 MG CAPSULE (FP) PO PRN (17:08)
[2020-12-02] MEDS ORDERED: ONDANSETRON *ODT* 4 MG TABLET SL PRN (17:08)
[2020-12-02] MEDS ORDERED: diazePAM 5 MG TABLET PO PRN (17:10)
[2020-12-02] MEDS ORDERED: TRIMETHOBENZAMIDE HCL 200MG/2ML INJ IM ONE (17:11)
[2020-12-02] MEDS ORDERED: diazePAM 5 MG TABLET ONE (18:38)
[2020-12-02] MEDS: diazePAM 5 MG TABLET PO SCH ×2 (18:39→22:21)
[2020-12-02] MEDS: MELATONIN 5 MG TABLETS PO SCH (22:19)
[2020-12-02] MEDS: THIAMINE HCL 100 MG TABLET (FP) PO SCH (22:21)
[2020-12-03] MEDS: diazePAM 5 MG TABLET PO SCH ×4 (05:47→23:08)
[2020-12-03] MEDS ORDERED: cloNIDine HCL 0.1 MG TABLET PO PRN (09:48)
[2020-12-03 10:38] LABS: HEMATOCRIT 40.8 % (35.4-49); HEMOGLOBIN 13.9 GM/dL (11.7-16.9); MCH 29.5 pg (25.7-33.7); MCHC 34.1 g/dl (32.0-35.9); MEAN CELL VOLUME 86.4 fl (80-96); MEAN PLT VOLUME 8.3 fl (7.5-11.1); PLATELET COUNT 212 10^3/uL (134-434); RBC 4.72 M/mm3 (4.00-5.60); RDW 14.3 % (11.9-15.9); WHITE BLOOD COUNT 7.7 K/mm3 (4.0-10.0)
[2020-12-03] MEDS: METHOCARBAMOL 500 MG TABLET PO PRN ×2 (10:40→18:08)
[2020-12-03] MEDS: PRENATAL VITAMINS W/ FOLIC ACID TABLET (FP) PO SCH (10:40)
[2020-12-03 10:42] LABS: ALBUMIN 3.5 g/dl (3.4-5.0); CALCIUM 8.6 mg/dL (8.5-10.1)
[2020-12-03 10:43] LABS: BLOOD UREA NITROGEN 9.6 mg/dL (7-18)
[2020-12-03 10:45] LABS: BILIRUBIN,TOTAL 0.6 mg/dL (0.2-1)
[2020-12-03 10:46] LABS: CREATININE 0.8 mg/dL (0.55-1.3)
[2020-12-03] MEDS: ACETAMINOPHEN 325 MG TABLET (FP) PO PRN (13:35)
[2020-12-03] MEDS: MELATONIN 5 MG TABLETS PO SCH (23:08)
[2020-12-03] MEDS: THIAMINE HCL 100 MG TABLET (FP) PO SCH (23:10)
[2020-12-04] MEDS: diazePAM 5 MG TABLET PO SCH ×3 (06:29→22:19)
[2020-12-04] MEDS: IBUPROFEN 400 MG TABLET (FP) PO PRN ×2 (06:30→13:40)
[2020-12-04] MEDS: METHOCARBAMOL 500 MG TABLET PO PRN (08:35)
[2020-12-04] MEDS: PRENATAL VITAMINS W/ FOLIC ACID TABLET (FP) PO SCH (10:14)
[2020-12-04] MEDS: ENALAPRIL MALEATE 10 MG TABLET PO SCH (10:15)
[2020-12-04] MEDS: ACETAMINOPHEN 325 MG TABLET (FP) PO PRN (10:15)
[2020-12-04] MEDS: THIAMINE HCL 100 MG TABLET (FP) PO SCH (22:19)
[2020-12-04] MEDS: MELATONIN 5 MG TABLETS PO SCH (22:19)
[2020-12-05] MEDS: diazePAM 5 MG TABLET PO SCH ×2 (06:33→18:05)
[2020-12-05] MEDS: IBUPROFEN 400 MG TABLET (FP) PO PRN ×2 (06:34→18:05)
[2020-12-05] MEDS: PRENATAL VITAMINS W/ FOLIC ACID TABLET (FP) PO SCH (10:03)
[2020-12-05] MEDS: METHOCARBAMOL 500 MG TABLET PO PRN ×2 (10:03→18:05)
[2020-12-05] MEDS: ENALAPRIL MALEATE 10 MG TABLET PO SCH (10:03)
[2020-12-05 17:16] VITALS: BP 153/91; PULSE 87; TEMP 98.2
[2020-12-06] MEDS ORDERED: diazePAM 5 MG TABLET PO ONE (06:00)
== END 2020-12-05 18:58 | disposition other institution (70) | DRG 774 ==
LOC: YASAS 13:14 → Y6N 17:35
PROVIDERS: ADMIT Allergy & Immunology; ATTEND Allergy & Immunology
PROC: HZ2ZZZZ Detoxification Services for Substance Abuse Treatment (ICD-10-PCS; principal; 2020-12-02)
DX: F10.230 Alcohol dependence with withdrawal, uncomplicated (principal); F14.20 Cocaine dependence, uncomplicated; F12.20 Cannabis dependence, uncomplicated; I10 Essential (primary) hypertension; J45.909 Unspecified asthma, uncomplicated; M54.5 Low back pain; Z59.0 Homelessness
CPT/HCPCS: 36415; 80053; 82962; 85027; 86780; C9803; J0735; U0003; U0005

== ENCOUNTER 2020-12-05 19:08 | Inpatient (IN) | payer OTHER ==
[2020-12-05] MEDS: THIAMINE HCL 100 MG TABLET (FP) PO SCH (21:45)
[2020-12-05] MEDS: MELATONIN 5 MG TABLETS PO SCH (21:45)
[2020-12-05] MEDS ORDERED: guaiFENesin 200 MG/10 ML 10 ML UNIT-DOSE CUPS PO PRN (21:54)
[2020-12-05] MEDS ORDERED: LOPERAMIDE HCL 2 MG CAPSULE PO PRN (21:54)
[2020-12-05] MEDS ORDERED: MAGNESIUM HYDROX 2400MG/30ML ORAL SUSPENSION 30 ML CUP PO PRN (21:54)
[2020-12-05] MEDS ORDERED: MENTHOL/PHENOL 1 EACH UD MM PRN (21:54)
[2020-12-05] MEDS ORDERED: P-EPHED 60MG/TRIPROLIDI 2.5MG TABLET PO PRN (21:54)
[2020-12-05] MEDS ORDERED: IBUPROFEN 400 MG TABLET (FP) PO PRN (21:54)
[2020-12-05] MEDS ORDERED: ACETAMINOPHEN 325 MG TABLET (FP) PO PRN (21:54)
[2020-12-05] MEDS ORDERED: MAG HYDROX/AL HYDROX/SIMETH 30 ML UNIT-DOSE CUP PO PRN (21:54)
[2020-12-05] MEDS ORDERED: MAGNESIUM CITRATE 300 ML BOTTLE PO PRN (21:54)
[2020-12-06] MEDS: metFORMIN HCL 500 MG TABLET (FP) PO SCH (06:49)
[2020-12-06] MEDS: PRENATAL VITAMINS W/ FOLIC ACID TABLET (FP) PO SCH (10:23)
[2020-12-06] MEDS: PANTOPRAZOLE 40 MG TABLET PO SCH (10:23)
[2020-12-06] MEDS: hydrOXYzine PAMOATE 25 MG CAPSULE (FP) PO PRN (10:24)
[2020-12-06] MEDS ORDERED: MODERNA COVID-19 VACC,MRNA/PF 100 MCG/0.5 ML IM ONE (11:00)
[2020-12-06] MEDS: TOLNAFTATE 1% POWDER 45 GM POW TP SCH ×2 (15:31→21:23)
[2020-12-06] MEDS: MELATONIN 5 MG TABLETS PO SCH (21:23)
[2020-12-06] MEDS: THIAMINE HCL 100 MG TABLET (FP) PO SCH (21:23)
[2020-12-07] MEDS: ALBUTEROL SO4 HFA INHALER IH PRN (06:09)
[2020-12-07] MEDS: metFORMIN HCL 500 MG TABLET (FP) PO SCH (06:10)
[2020-12-07] MEDS: PANTOPRAZOLE 40 MG TABLET PO SCH (10:27)
[2020-12-07] MEDS: PRENATAL VITAMINS W/ FOLIC ACID TABLET (FP) PO SCH (10:27)
[2020-12-07] MEDS: TOLNAFTATE 1% POWDER 45 GM POW TP SCH ×2 (10:28→22:09)
[2020-12-07] MEDS: MELATONIN 5 MG TABLETS PO SCH (22:09)
[2020-12-07] MEDS: THIAMINE HCL 100 MG TABLET (FP) PO SCH (22:09)
[2020-12-08] MEDS: metFORMIN HCL 500 MG TABLET (FP) PO SCH (06:19)
[2020-12-08] MEDS: PRENATAL VITAMINS W/ FOLIC ACID TABLET (FP) PO SCH (09:47)
[2020-12-08] MEDS: TOLNAFTATE 1% POWDER 45 GM POW TP SCH ×2 (09:48→23:03)
[2020-12-08] MEDS: PANTOPRAZOLE 40 MG TABLET PO SCH (09:48)
[2020-12-08] MEDS: THIAMINE HCL 100 MG TABLET (FP) PO SCH (23:03)
[2020-12-08] MEDS: MELATONIN 5 MG TABLETS PO SCH (23:03)
[2020-12-09] MEDS: metFORMIN HCL 500 MG TABLET (FP) PO SCH (06:13)
[2020-12-09] MEDS: TOLNAFTATE 1% POWDER 45 GM POW TP SCH ×2 (09:32→23:05)
[2020-12-09] MEDS: PANTOPRAZOLE 40 MG TABLET PO SCH (09:32)
[2020-12-09] MEDS: PRENATAL VITAMINS W/ FOLIC ACID TABLET (FP) PO SCH (09:32)
[2020-12-09] MEDS: MELATONIN 5 MG TABLETS PO SCH (23:05)
[2020-12-09] MEDS: THIAMINE HCL 100 MG TABLET (FP) PO SCH (23:05)
[2020-12-10] MEDS: metFORMIN HCL 500 MG TABLET (FP) PO SCH (06:47)
[2020-12-10] MEDS: TOLNAFTATE 1% POWDER 45 GM POW TP SCH ×2 (10:02→22:26)
[2020-12-10] MEDS: PRENATAL VITAMINS W/ FOLIC ACID TABLET (FP) PO SCH (10:03)
[2020-12-10] MEDS: PANTOPRAZOLE 40 MG TABLET PO SCH (10:03)
[2020-12-10] MEDS ORDERED: PT OWN MED DRAWER 7, Y5N ONE (19:35)
[2020-12-10] MEDS: MELATONIN 5 MG TABLETS PO SCH (22:25)
[2020-12-10] MEDS: THIAMINE HCL 100 MG TABLET (FP) PO SCH (22:26)
[2020-12-11] MEDS: metFORMIN HCL 500 MG TABLET (FP) PO SCH (06:37)
[2020-12-11] MEDS: TOLNAFTATE 1% POWDER 45 GM POW TP SCH ×2 (11:07→23:38)
[2020-12-11] MEDS: ALBUTEROL SO4 HFA INHALER IH PRN (11:07)
[2020-12-11] MEDS: PANTOPRAZOLE 40 MG TABLET PO SCH (11:08)
[2020-12-11] MEDS: PRENATAL VITAMINS W/ FOLIC ACID TABLET (FP) PO SCH (11:09)
[2020-12-11] MEDS: MELATONIN 5 MG TABLETS PO SCH (23:38)
[2020-12-11] MEDS: THIAMINE HCL 100 MG TABLET (FP) PO SCH (23:39)
[2020-12-12] MEDS: metFORMIN HCL 500 MG TABLET (FP) PO SCH (06:27)
[2020-12-12] MEDS: PRENATAL VITAMINS W/ FOLIC ACID TABLET (FP) PO SCH (10:18)
[2020-12-12] MEDS: PANTOPRAZOLE 40 MG TABLET PO SCH (10:18)
[2020-12-12] MEDS: TOLNAFTATE 1% POWDER 45 GM POW TP SCH ×2 (10:18→23:16)
[2020-12-12] MEDS: THIAMINE HCL 100 MG TABLET (FP) PO SCH (23:16)
[2020-12-12] MEDS: MELATONIN 5 MG TABLETS PO SCH (23:16)
[2020-12-13] MEDS: metFORMIN HCL 500 MG TABLET (FP) PO SCH (06:57)
[2020-12-13] MEDS: TOLNAFTATE 1% POWDER 45 GM POW TP SCH ×2 (09:42→22:10)
[2020-12-13] MEDS: PRENATAL VITAMINS W/ FOLIC ACID TABLET (FP) PO SCH (09:42)
[2020-12-13] MEDS: PANTOPRAZOLE 40 MG TABLET PO SCH (09:42)
[2020-12-13] MEDS: THIAMINE HCL 100 MG TABLET (FP) PO SCH (22:11)
[2020-12-13] MEDS: MELATONIN 5 MG TABLETS PO SCH (22:23)
[2020-12-13] MEDS: traZODone HCL 50 MG TABLET (FP) PO SCH (22:23)
[2020-12-14] MEDS: PRENATAL VITAMINS W/ FOLIC ACID TABLET (FP) PO SCH (10:06)
[2020-12-14] MEDS: PANTOPRAZOLE 40 MG TABLET PO SCH (10:06)
[2020-12-14] MEDS: TOLNAFTATE 1% POWDER 45 GM POW TP SCH ×2 (10:06→22:24)
[2020-12-14] MEDS: metFORMIN HCL 500 MG TABLET (FP) PO SCH (10:06)
[2020-12-14] MEDS: ALBUTEROL SO4 HFA INHALER IH PRN (10:06)
[2020-12-14] MEDS: hydrOXYzine PAMOATE 25 MG CAPSULE (FP) PO PRN (10:07)
[2020-12-14] MEDS ORDERED: PT OWN MED DRAWER 7, Y5N ONE (19:18)
[2020-12-14] MEDS: MELATONIN 5 MG TABLETS PO SCH (22:24)
[2020-12-14] MEDS: traZODone HCL 50 MG TABLET (FP) PO SCH (22:24)
[2020-12-14] MEDS: THIAMINE HCL 100 MG TABLET (FP) PO SCH (22:24)
[2020-12-15] MEDS: metFORMIN HCL 500 MG TABLET (FP) PO SCH (07:19)
[2020-12-15] MEDS: hydrOXYzine PAMOATE 25 MG CAPSULE (FP) PO PRN (10:05)
[2020-12-15] MEDS: PRENATAL VITAMINS W/ FOLIC ACID TABLET (FP) PO SCH (10:05)
[2020-12-15] MEDS: PANTOPRAZOLE 40 MG TABLET PO SCH (10:05)
[2020-12-15] MEDS: TOLNAFTATE 1% POWDER 45 GM POW TP SCH ×2 (10:05→22:19)
[2020-12-15] MEDS: ALBUTEROL SO4 HFA INHALER IH PRN (10:06)
[2020-12-15] MEDS: traZODone HCL 50 MG TABLET (FP) PO SCH (22:19)
[2020-12-15] MEDS: THIAMINE HCL 100 MG TABLET (FP) PO SCH (22:19)
[2020-12-15] MEDS: MELATONIN 5 MG TABLETS PO SCH (22:19)
[2020-12-16] MEDS: metFORMIN HCL 500 MG TABLET (FP) PO SCH (07:17)
[2020-12-16] MEDS: PRENATAL VITAMINS W/ FOLIC ACID TABLET (FP) PO SCH (11:34)
[2020-12-16] MEDS: PANTOPRAZOLE 40 MG TABLET PO SCH (11:35)
[2020-12-16] MEDS: TOLNAFTATE 1% POWDER 45 GM POW TP SCH ×2 (11:35→22:57)
[2020-12-16] MEDS: ALBUTEROL SO4 HFA INHALER IH PRN (12:50)
[2020-12-16] MEDS: hydrOXYzine PAMOATE 25 MG CAPSULE (FP) PO PRN (12:51)
[2020-12-16] MEDS: traZODone HCL 50 MG TABLET (FP) PO SCH (22:57)
[2020-12-16] MEDS: MELATONIN 5 MG TABLETS PO SCH (22:57)
[2020-12-16] MEDS: THIAMINE HCL 100 MG TABLET (FP) PO SCH (22:57)
[2020-12-17] MEDS: metFORMIN HCL 500 MG TABLET (FP) PO SCH (06:05)
[2020-12-17] MEDS: PRENATAL VITAMINS W/ FOLIC ACID TABLET (FP) PO SCH (10:06)
[2020-12-17] MEDS: TOLNAFTATE 1% POWDER 45 GM POW TP SCH ×2 (10:06→23:08)
[2020-12-17] MEDS: PANTOPRAZOLE 40 MG TABLET PO SCH (10:06)
[2020-12-17] MEDS: ALBUTEROL SO4 HFA INHALER IH PRN (10:08)
[2020-12-17] MEDS: hydrOXYzine PAMOATE 25 MG CAPSULE (FP) PO PRN (10:46)
[2020-12-17] MEDS: traZODone HCL 50 MG TABLET (FP) PO SCH (23:08)
[2020-12-17] MEDS: MELATONIN 5 MG TABLETS PO SCH (23:08)
[2020-12-17] MEDS: THIAMINE HCL 100 MG TABLET (FP) PO SCH (23:08)
[2020-12-18] MEDS: metFORMIN HCL 500 MG TABLET (FP) PO SCH (06:28)
[2020-12-18] MEDS: ALBUTEROL SO4 HFA INHALER IH PRN (09:58)
[2020-12-18] MEDS: hydrOXYzine PAMOATE 25 MG CAPSULE (FP) PO PRN (09:58)
[2020-12-18] MEDS: PRENATAL VITAMINS W/ FOLIC ACID TABLET (FP) PO SCH (09:58)
[2020-12-18] MEDS: PANTOPRAZOLE 40 MG TABLET PO SCH (09:58)
[2020-12-18] MEDS: TOLNAFTATE 1% POWDER 45 GM POW TP SCH ×2 (09:58→23:00)
[2020-12-18] MEDS: THIAMINE HCL 100 MG TABLET (FP) PO SCH (23:00)
[2020-12-18] MEDS: MELATONIN 5 MG TABLETS PO SCH (23:00)
[2020-12-18] MEDS: traZODone HCL 50 MG TABLET (FP) PO SCH (23:00)
[2020-12-19] MEDS: metFORMIN HCL 500 MG TABLET (FP) PO SCH (06:40)
[2020-12-19 07:37] VITALS: BP 138/82; PULSE 89; TEMP 97.1
[2020-12-19] MEDS: PANTOPRAZOLE 40 MG TABLET PO SCH (10:21)
[2020-12-19] MEDS: PRENATAL VITAMINS W/ FOLIC ACID TABLET (FP) PO SCH (10:21)
[2020-12-19] MEDS: hydrOXYzine PAMOATE 25 MG CAPSULE (FP) PO PRN (10:22)
[2020-12-19] MEDS: ALBUTEROL SO4 HFA INHALER IH PRN (10:23)
[2020-12-19] MEDS: TOLNAFTATE 1% POWDER 45 GM POW TP SCH ×2 (10:23→22:33)
[2020-12-19] MEDS: traZODone HCL 50 MG TABLET (FP) PO SCH (22:32)
[2020-12-19] MEDS: MELATONIN 5 MG TABLETS PO SCH (22:32)
[2020-12-19] MEDS: THIAMINE HCL 100 MG TABLET (FP) PO SCH (22:33)
[2020-12-20] MEDS ORDERED: PT OWN MED DRAWER 7, Y5N ONE (09:01)
[2020-12-20] MEDS: PRENATAL VITAMINS W/ FOLIC ACID TABLET (FP) PO SCH (10:25)
[2020-12-20] MEDS: PANTOPRAZOLE 40 MG TABLET PO SCH (10:25)
[2020-12-20] MEDS: TOLNAFTATE 1% POWDER 45 GM POW TP SCH (10:25)
== END 2020-12-20 10:30 | disposition home or self-care (01) | DRG 772 ==
LOC: YASAS 19:08 → Y3W 19:10 → Y5N 12-07 07:26
PROVIDERS: ADMIT Allergy & Immunology; ATTEND Allergy & Immunology
PROC: HZ42ZZZ Group Counseling for Substance Abuse Treatment, Cognitive-Behavioral (ICD-10-PCS; principal; 2020-12-05)
DX: F10.20 Alcohol dependence, uncomplicated (principal); F14.20 Cocaine dependence, uncomplicated; F12.20 Cannabis dependence, uncomplicated; F17.210 Nicotine dependence, cigarettes, uncomplicated; F19.282 Other psychoactive substance dependence with psychoactive substance-induced sleep disorder; F31.9 Bipolar disorder, unspecified; F60.9 Personality disorder, unspecified; F20.9 Schizophrenia, unspecified; I10 Essential (primary) hypertension; J45.909 Unspecified asthma, uncomplicated; K21.9 Gastro-esophageal reflux disease without esophagitis; E11.9 Type 2 diabetes mellitus without complications; Z79.84 Long term (current) use of oral hypoglycemic drugs; B35.3 Tinea pedis; Z56.0 Unemployment, unspecified; Z59.0 Homelessness; S00.33XA Contusion of nose, initial encounter; Y04.2XXA Assault by strike against or bumped into by another person, initial encounter; Y92.238 Other place in hospital as the place of occurrence of the external cause
CPT/HCPCS: 82962

== ENCOUNTER 2021-05-09 12:43 | Inpatient (IN) | payer OTHER ==
[2021-05-09 13:22] VITALS: BMI 29.8
[2021-05-09] MEDS ORDERED: IBUPROFEN 400 MG TABLET (FP) PO PRN (13:48)
[2021-05-09] MEDS ORDERED: NICOTINE 10 MG CARTRIDGE (INHALER) IH PRN (13:48)
[2021-05-09] MEDS ORDERED: ONDANSETRON *ODT* 4 MG TABLET SL PRN (13:48)
[2021-05-09] MEDS ORDERED: MAG HYDROX/AL HYDROX/SIMETH 30 ML UNIT-DOSE CUP PO PRN (13:48)
[2021-05-09] MEDS ORDERED: BISMUTH SUBSALICYLATE 524 MG/30 ML PO PRN (13:48)
[2021-05-09] MEDS ORDERED: MAGNESIUM CITRATE 300 ML BOTTLE PO PRN (13:48)
[2021-05-09] MEDS ORDERED: chlordiazePOXIDE HCL 25 MG CAPSULE PO PRN (13:48)
[2021-05-09] MEDS ORDERED: ACETAMINOPHEN 325 MG TABLET (FP) PO PRN ×2 (13:48)
[2021-05-09] MEDS ORDERED: MAGNESIUM HYDROX 2400MG/30ML ORAL SUSPENSION 30 ML CUP PO PRN (13:48)
[2021-05-09] MEDS ORDERED: MENTHOL/PHENOL 1 EACH UD MM PRN (13:48)
[2021-05-09] MEDS ORDERED: LOPERAMIDE HCL 2 MG CAPSULE PO PRN (13:48)
[2021-05-09] MEDS: hydrOXYzine PAMOATE 25 MG CAPSULE (FP) PO SCH ×3 (14:11→22:33)
[2021-05-09] MEDS: PRENATAL VITAMINS W/ FOLIC ACID TABLET (FP) PO SCH (14:11)
[2021-05-09] MEDS: chlordiazePOXIDE HCL 25 MG CAPSULE PO SCH ×3 (14:11→22:28)
[2021-05-09] MEDS: NICOTINE 7 MG/24 HOURS TOPICAL PATCH TD SCH (14:11)
[2021-05-09 17:03] LABS: HEMATOCRIT 42.7 % (35.4-49); HEMOGLOBIN 14.2 GM/dL (11.7-16.9); MCH 28.1 pg (25.7-33.7); MCHC 33.2 g/dl (32.0-35.9); MEAN CELL VOLUME 84.6 fl (80-96); MEAN PLT VOLUME 8.6 fl (7.5-11.1); PLATELET COUNT 238 10^3/uL (134-434); RBC 5.05 M/mm3 (4.00-5.60); RDW 13.7 % (11.9-15.9); WHITE BLOOD COUNT 7.9 K/mm3 (4.0-10.0)
[2021-05-09 17:07] LABS: ALBUMIN 3.6 g/dl (3.4-5.0); BLOOD UREA NITROGEN 9.5 mg/dL (7-18)
[2021-05-09 17:10] LABS: CREATININE 0.7 mg/dL (0.55-1.3)
[2021-05-09 17:12] LABS: BILIRUBIN,TOTAL 0.3 mg/dL (0.2-1); TOT PROT 7.2 g/dl (6.4-8.2)
[2021-05-09] MEDS: THIAMINE HCL 100 MG TABLET (FP) PO SCH (22:28)
[2021-05-09] MEDS: MELATONIN 5 MG TABLETS PO SCH (22:28)
[2021-05-10] MEDS: chlordiazePOXIDE HCL 25 MG CAPSULE PO SCH ×4 (07:32→22:32)
[2021-05-10] MEDS: hydrOXYzine PAMOATE 25 MG CAPSULE (FP) PO SCH ×5 (07:32→22:33)
[2021-05-10] MEDS: PRENATAL VITAMINS W/ FOLIC ACID TABLET (FP) PO SCH (10:36)
[2021-05-10] MEDS: NICOTINE 7 MG/24 HOURS TOPICAL PATCH TD SCH (10:36)
[2021-05-10] MEDS: THIAMINE HCL 100 MG TABLET (FP) PO SCH (22:32)
[2021-05-10] MEDS: MELATONIN 5 MG TABLETS PO SCH (22:32)
[2021-05-11] MEDS: chlordiazePOXIDE HCL 25 MG CAPSULE PO SCH ×4 (06:46→22:34)
[2021-05-11] MEDS: hydrOXYzine PAMOATE 25 MG CAPSULE (FP) PO SCH ×5 (06:46→22:45)
[2021-05-11] MEDS: NICOTINE 7 MG/24 HOURS TOPICAL PATCH TD SCH (10:43)
[2021-05-11] MEDS: PRENATAL VITAMINS W/ FOLIC ACID TABLET (FP) PO SCH (10:43)
[2021-05-11 14:06] LABS: SARS-CoV-2 NAA Not Detected (Not Detected)
[2021-05-11] MEDS: THIAMINE HCL 100 MG TABLET (FP) PO SCH (22:34)
[2021-05-11] MEDS: MELATONIN 5 MG TABLETS PO SCH (22:34)
[2021-05-11] MEDS: METHOCARBAMOL 500 MG TABLET PO PRN (22:35)
[2021-05-12] MEDS ORDERED: chlordiazePOXIDE HCL 10 MG CAPSULE PO PRN
[2021-05-12] MEDS: chlordiazePOXIDE HCL 10 MG CAPSULE PO SCH ×4 (07:09→22:54)
[2021-05-12] MEDS: hydrOXYzine PAMOATE 25 MG CAPSULE (FP) PO SCH ×5 (07:09→22:54)
[2021-05-12] MEDS: NICOTINE 7 MG/24 HOURS TOPICAL PATCH TD SCH (10:18)
[2021-05-12] MEDS: PRENATAL VITAMINS W/ FOLIC ACID TABLET (FP) PO SCH (10:18)
[2021-05-12] MEDS: MELATONIN 5 MG TABLETS PO SCH (22:54)
[2021-05-12] MEDS: THIAMINE HCL 100 MG TABLET (FP) PO SCH (22:54)
[2021-05-13] MEDS: chlordiazePOXIDE HCL 10 MG CAPSULE PO SCH ×2 (06:47→17:41)
[2021-05-13] MEDS: hydrOXYzine PAMOATE 25 MG CAPSULE (FP) PO SCH ×5 (06:47→22:51)
[2021-05-13] MEDS: PRENATAL VITAMINS W/ FOLIC ACID TABLET (FP) PO SCH (09:59)
[2021-05-13] MEDS: NICOTINE 7 MG/24 HOURS TOPICAL PATCH TD SCH (10:00)
[2021-05-13] MEDS: THIAMINE HCL 100 MG TABLET (FP) PO SCH (22:51)
[2021-05-13] MEDS: METHOCARBAMOL 500 MG TABLET PO PRN (22:51)
[2021-05-13] MEDS: MELATONIN 5 MG TABLETS PO SCH (22:51)
[2021-05-14] MEDS ORDERED: chlordiazePOXIDE HCL 10 MG CAPSULE PO ONE (05:00)
[2021-05-14] MEDS: hydrOXYzine PAMOATE 25 MG CAPSULE (FP) PO SCH (05:57)
[2021-05-14 08:58] VITALS: BP 112/67; PULSE 73; TEMP 98.2
== END 2021-05-14 10:08 | disposition other institution (70) | DRG 774 ==
LOC: YASAS 12:43 → Y3N 14:17
PROVIDERS: ADMIT Allergy & Immunology; ATTEND Allergy & Immunology
PROC: HZ2ZZZZ Detoxification Services for Substance Abuse Treatment (ICD-10-PCS; principal; 2021-05-09)
DX: F10.230 Alcohol dependence with withdrawal, uncomplicated (principal); F14.10 Cocaine abuse, uncomplicated; F12.20 Cannabis dependence, uncomplicated; F17.210 Nicotine dependence, cigarettes, uncomplicated; F31.81 Bipolar II disorder; I10 Essential (primary) hypertension; E78.5 Hyperlipidemia, unspecified; E11.9 Type 2 diabetes mellitus without complications; K21.9 Gastro-esophageal reflux disease without esophagitis; Z86.69 Personal history of other diseases of the nervous system and sense organs
CPT/HCPCS: 36415; 80053; 82962; 85027; 86780; C9803; U0003; U0005

== ENCOUNTER 2021-06-07 10:44 | Inpatient (IN) | payer OTHER ==
[2021-06-07 12:00] VITALS: BMI 29.9
[2021-06-07] MEDS ORDERED: ACETAMINOPHEN 325 MG TABLET (FP) PO PRN ×2 (15:01)
[2021-06-07] MEDS ORDERED: LOPERAMIDE HCL 2 MG CAPSULE PO PRN (15:01)
[2021-06-07] MEDS ORDERED: LORazepam 1 MG TABLET PO PRN (15:01)
[2021-06-07] MEDS ORDERED: BISMUTH SUBSALICYLATE 524 MG/30 ML PO PRN (15:01)
[2021-06-07] MEDS ORDERED: METHOCARBAMOL 500 MG TABLET PO PRN (15:01)
[2021-06-07] MEDS ORDERED: NICOTINE 10 MG CARTRIDGE (INHALER) IH PRN (15:01)
[2021-06-07] MEDS ORDERED: MAG HYDROX/AL HYDROX/SIMETH 30 ML UNIT-DOSE CUP PO PRN (15:01)
[2021-06-07] MEDS ORDERED: MENTHOL/PHENOL 1 EACH UD MM PRN (15:01)
[2021-06-07] MEDS ORDERED: IBUPROFEN 400 MG TABLET (FP) PO PRN (15:01)
[2021-06-07] MEDS ORDERED: MAGNESIUM CITRATE 300 ML BOTTLE PO PRN (15:01)
[2021-06-07] MEDS ORDERED: MAGNESIUM HYDROX 2400MG/30ML ORAL SUSPENSION 30 ML CUP PO PRN (15:01)
[2021-06-07] MEDS ORDERED: ONDANSETRON *ODT* 4 MG TABLET SL PRN (15:01)
[2021-06-07] MEDS ORDERED: ALBUTEROL SO4 HFA INHALER IH PRN (17:55)
[2021-06-07] MEDS: hydrOXYzine PAMOATE 25 MG CAPSULE (FP) PO SCH ×2 (18:07→23:25)
[2021-06-07] MEDS: FAMOTIDINE 20 MG TABLET PO SCH (18:07)
[2021-06-07] MEDS: LORazepam 2 MG TABLET PO SCH ×2 (18:07→23:26)
[2021-06-07] MEDS: ATORVASTATIN CA 20 MG TABLET (FP) PO SCH (23:25)
[2021-06-07] MEDS: MELATONIN 5 MG TABLETS PO SCH (23:25)
[2021-06-07] MEDS: THIAMINE HCL 100 MG TABLET (FP) PO SCH (23:26)
[2021-06-08] MEDS: LORazepam 2 MG TABLET PO SCH ×4 (06:01→22:30)
[2021-06-08] MEDS: hydrOXYzine PAMOATE 25 MG CAPSULE (FP) PO SCH ×5 (06:01→22:31)
[2021-06-08] MEDS: FAMOTIDINE 20 MG TABLET PO SCH (11:05)
[2021-06-08] MEDS: PRENATAL VITAMINS W/ FOLIC ACID TABLET (FP) PO SCH (11:07)
[2021-06-08 11:34] LABS: HEMATOCRIT 41.8 % (35.4-49); HEMOGLOBIN 14.1 GM/dL (11.7-16.9); MCH 28.9 pg (25.7-33.7); MCHC 33.6 g/dl (32.0-35.9); MEAN PLT VOLUME 8.4 fl (7.5-11.1); PLATELET COUNT 231 10^3/uL (134-434); RBC 4.87 M/mm3 (4.00-5.60); WHITE BLOOD COUNT 7.2 K/mm3 (4.0-10.0)
[2021-06-08 11:43] LABS: CALCIUM 9.1 mg/dL (8.5-10.1)
[2021-06-08 11:44] LABS: ALBUMIN 3.9 g/dl (3.4-5.0); BLOOD UREA NITROGEN 10.5 mg/dL (7-18)
[2021-06-08 11:47] LABS: CREATININE 0.8 mg/dL (0.55-1.3)
[2021-06-08 11:49] LABS: BILIRUBIN,TOTAL 0.8 mg/dL (0.2-1); TOT PROT 7.2 g/dl (6.4-8.2)
[2021-06-08] MEDS: ATORVASTATIN CA 20 MG TABLET (FP) PO SCH (22:30)
[2021-06-08] MEDS: MELATONIN 5 MG TABLETS PO SCH (22:31)
[2021-06-08] MEDS: THIAMINE HCL 100 MG TABLET (FP) PO SCH (22:32)
[2021-06-09] MEDS: hydrOXYzine PAMOATE 25 MG CAPSULE (FP) PO SCH ×2 (05:52→10:33)
[2021-06-09] MEDS: LORazepam 1 MG TABLET PO SCH ×2 (05:52→10:31)
[2021-06-09 07:00] VITALS: PULSE 90
[2021-06-09] MEDS: PRENATAL VITAMINS W/ FOLIC ACID TABLET (FP) PO SCH (10:31)
[2021-06-09] MEDS: FAMOTIDINE 20 MG TABLET PO SCH (10:32)
[2021-06-09 10:52] VITALS: BP 99/63; TEMP 98.2
[2021-06-10] MEDS ORDERED: LORazepam 0.5 MG TABLET PO PRN
[2021-06-10] MEDS ORDERED: LORazepam 0.5 MG TABLET PO SCH (05:00)
[2021-06-10 06:06] LABS: SARS-CoV-2 NAA Not Detected (Not Detected)
[2021-06-11] MEDS ORDERED: LORazepam 0.5 MG TABLET PO ONE (05:00)
== END 2021-06-09 12:35 | disposition home or self-care (01) | DRG 774 ==
LOC: YASAS 10:44 → Y6N 16:45
PROVIDERS: ADMIT Allergy & Immunology; ATTEND Allergy & Immunology
PROC: HZ2ZZZZ Detoxification Services for Substance Abuse Treatment (ICD-10-PCS; principal; 2021-06-07)
DX: F10.230 Alcohol dependence with withdrawal, uncomplicated (principal); F14.20 Cocaine dependence, uncomplicated; F12.20 Cannabis dependence, uncomplicated; F31.9 Bipolar disorder, unspecified; E78.00 Pure hypercholesterolemia, unspecified; J45.909 Unspecified asthma, uncomplicated; E11.9 Type 2 diabetes mellitus without complications; Z91.013 Allergy to seafood
CPT/HCPCS: 36415; 80053; 82962; 85027; 86780; C9803; U0003; U0005

== ENCOUNTER 2021-08-11 16:33 | Inpatient (IN) | payer OTHER ==
[2021-08-11 17:01] VITALS: BMI 27.1
[2021-08-11] MEDS ORDERED: NICOTINE 10 MG CARTRIDGE (INHALER) IH PRN (17:12)
[2021-08-11] MEDS ORDERED: LOPERAMIDE HCL 2 MG CAPSULE PO PRN (17:12)
[2021-08-11] MEDS ORDERED: IBUPROFEN 400 MG TABLET (FP) PO PRN (17:12)
[2021-08-11] MEDS ORDERED: BISMUTH SUBSALICYLATE 524 MG/30 ML PO PRN (17:12)
[2021-08-11] MEDS ORDERED: METHOCARBAMOL 500 MG TABLET PO PRN (17:12)
[2021-08-11] MEDS ORDERED: LORazepam 2 MG TABLET PO ONE (17:12)
[2021-08-11] MEDS ORDERED: BENZOCAINE/MENTHOL (CHLORASEPTIC ) LOZENGE MM PRN (17:12)
[2021-08-11] MEDS ORDERED: MAGNESIUM CITRATE 300 ML BOTTLE PO PRN (17:12)
[2021-08-11] MEDS ORDERED: ONDANSETRON *ODT* 4 MG TABLET SL PRN (17:12)
[2021-08-11] MEDS ORDERED: MAGNESIUM HYDROX 2400MG/30ML ORAL SUSPENSION 30 ML CUP PO PRN (17:12)
[2021-08-11] MEDS ORDERED: DICYCLOMINE HCL 10 MG CAPSULE PO PRN (17:12)
[2021-08-11] MEDS ORDERED: LORazepam 1 MG TABLET PO PRN (17:12)
[2021-08-11] MEDS ORDERED: ACETAMINOPHEN 325 MG TABLET (FP) PO PRN (17:12)
[2021-08-11] MEDS ORDERED: MAG HYDROX/AL HYDROX/SIMETH 30 ML UNIT-DOSE CUP PO PRN (17:12)
[2021-08-11] MEDS ORDERED: ALBUTEROL SO4 HFA INHALER IH PRN (17:37)
[2021-08-11] MEDS ORDERED: guaiFENesin 200 MG/10 ML 10 ML UNIT-DOSE CUPS PO PRN (17:38)
[2021-08-11] MEDS: PRENATAL VITAMINS W/ FOLIC ACID TABLET (FP) PO SCH (20:53)
[2021-08-11] MEDS: hydrOXYzine PAMOATE 25 MG CAPSULE (FP) PO SCH ×2 (20:53→23:15)
[2021-08-11] MEDS: FAMOTIDINE 20 MG TABLET PO SCH (20:53)
[2021-08-11] MEDS: ACETAMINOPHEN 325 MG TABLET (FP) PO PRN (20:53)
[2021-08-11] MEDS: TOLNAFTATE 1% CREAM 15 GM TUBE TP SCH (23:14)
[2021-08-11] MEDS: LORazepam 2 MG TABLET PO SCH (23:15)
[2021-08-11] MEDS: MELATONIN 5 MG TABLETS PO SCH (23:15)
[2021-08-11] MEDS: THIAMINE HCL 100 MG TABLET (FP) PO SCH (23:15)
[2021-08-12] MEDS: hydrOXYzine PAMOATE 25 MG CAPSULE (FP) PO SCH ×5 (06:41→23:03)
[2021-08-12] MEDS: LORazepam 2 MG TABLET PO SCH ×5 (06:56→23:04)
[2021-08-12 10:08] LABS: HEMATOCRIT 45.2 % (35.4-49); MCH 28.5 pg (25.7-33.7); MCHC 33.2 g/dl (32.0-35.9); MEAN CELL VOLUME 85.6 fl (80-96); MEAN PLT VOLUME 9.2 fl (7.5-11.1); PLATELET COUNT 177 10^3/uL (134-434); RBC 5.28 M/mm3 (4.00-5.60); RDW 13.9 % (11.9-15.9); WHITE BLOOD COUNT 5.4 K/mm3 (4.0-10.0)
[2021-08-12 10:25] LABS: BLOOD UREA NITROGEN 9.2 mg/dL (7-18); CALCIUM 9.2 mg/dL (8.5-10.1)
[2021-08-12 10:26] LABS: ALBUMIN 3.8 g/dl (3.4-5.0)
[2021-08-12 10:29] LABS: CREATININE 0.8 mg/dL (0.55-1.3)
[2021-08-12 10:30] LABS: BILIRUBIN,TOTAL 1.2 mg/dL (0.2-1)
[2021-08-12] MEDS: FAMOTIDINE 20 MG TABLET PO SCH (10:33)
[2021-08-12] MEDS: PRENATAL VITAMINS W/ FOLIC ACID TABLET (FP) PO SCH (10:33)
[2021-08-12] MEDS: TOLNAFTATE 1% CREAM 15 GM TUBE TP SCH ×2 (10:34→23:03)
[2021-08-12] MEDS: ACETAMINOPHEN 325 MG TABLET (FP) PO PRN (18:21)
[2021-08-12] MEDS: MELATONIN 5 MG TABLETS PO SCH (23:03)
[2021-08-12] MEDS: THIAMINE HCL 100 MG TABLET (FP) PO SCH (23:04)
[2021-08-13] MEDS: hydrOXYzine PAMOATE 25 MG CAPSULE (FP) PO SCH ×5 (06:15→22:59)
[2021-08-13] MEDS: LORazepam 1 MG TABLET PO SCH ×4 (06:15→22:59)
[2021-08-13 10:07] LABS: SARS-CoV-2 NAA Not Detected (Not Detected)
[2021-08-13] MEDS: FAMOTIDINE 20 MG TABLET PO SCH (10:12)
[2021-08-13] MEDS: TOLNAFTATE 1% CREAM 15 GM TUBE TP SCH ×2 (10:12→23:00)
[2021-08-13] MEDS: PRENATAL VITAMINS W/ FOLIC ACID TABLET (FP) PO SCH (10:14)
[2021-08-13] MEDS: MELATONIN 5 MG TABLETS PO SCH (22:59)
[2021-08-13] MEDS: THIAMINE HCL 100 MG TABLET (FP) PO SCH (23:00)
[2021-08-14] MEDS ORDERED: LORazepam 0.5 MG TABLET PO PRN
[2021-08-14] MEDS: LORazepam 0.5 MG TABLET PO SCH ×2 (05:15→10:36)
[2021-08-14] MEDS: hydrOXYzine PAMOATE 25 MG CAPSULE (FP) PO SCH ×2 (05:16→10:36)
[2021-08-14] MEDS: FAMOTIDINE 20 MG TABLET PO SCH (10:36)
[2021-08-14] MEDS: PRENATAL VITAMINS W/ FOLIC ACID TABLET (FP) PO SCH (10:36)
[2021-08-14] MEDS: TOLNAFTATE 1% CREAM 15 GM TUBE TP SCH (10:38)
[2021-08-14 13:03] VITALS: BP 132/94; PULSE 101; TEMP 97.1
[2021-08-15] MEDS ORDERED: LORazepam 0.5 MG TABLET PO ONE (05:00)
== END 2021-08-14 14:30 | disposition home or self-care (01) | DRG 774 ==
LOC: YASAS 16:33 → Y3N 19:09
PROVIDERS: ADMIT Allergy & Immunology; ATTEND Allergy & Immunology
PROC: HZ2ZZZZ Detoxification Services for Substance Abuse Treatment (ICD-10-PCS; principal; 2021-08-11)
DX: F10.230 Alcohol dependence with withdrawal, uncomplicated (principal); F14.20 Cocaine dependence, uncomplicated; F12.20 Cannabis dependence, uncomplicated; F17.210 Nicotine dependence, cigarettes, uncomplicated; F31.9 Bipolar disorder, unspecified; B35.3 Tinea pedis; E78.00 Pure hypercholesterolemia, unspecified; J45.20 Mild intermittent asthma, uncomplicated; M54.50 Low back pain, unspecified; G89.29 Other chronic pain; Z91.013 Allergy to seafood
CPT/HCPCS: 36415; 80053; 85027; 86780; C9803-CS; Q0162; U0003; U0005

== ENCOUNTER 2021-10-03 14:11 | Inpatient (IN) | payer OTHER ==
[2021-10-03 15:53] VITALS: BMI 26.4
[2021-10-03] MEDS ORDERED: LORazepam 1 MG TABLET PO PRN (17:28)
[2021-10-03] MEDS ORDERED: IBUPROFEN 400 MG TABLET (FP) PO PRN (17:28)
[2021-10-03] MEDS ORDERED: METHOCARBAMOL 500 MG TABLET PO PRN (17:28)
[2021-10-03] MEDS ORDERED: MAGNESIUM HYDROX 2400MG/30ML ORAL SUSPENSION 30 ML CUP PO PRN (17:28)
[2021-10-03] MEDS ORDERED: NICOTINE 10 MG CARTRIDGE (INHALER) IH PRN (17:28)
[2021-10-03] MEDS ORDERED: ONDANSETRON *ODT* 4 MG TABLET SL PRN (17:28)
[2021-10-03] MEDS ORDERED: BENZOCAINE/MENTHOL (CHLORASEPTIC ) LOZENGE MM PRN (17:28)
[2021-10-03] MEDS ORDERED: hydrOXYzine PAMOATE 25 MG CAPSULE (FP) PO PRN (17:28)
[2021-10-03] MEDS ORDERED: ACETAMINOPHEN 325 MG TABLET (FP) PO PRN ×2 (17:28)
[2021-10-03] MEDS ORDERED: MAG HYDROX/AL HYDROX/SIMETH 30 ML UNIT-DOSE CUP PO PRN (17:28)
[2021-10-03] MEDS ORDERED: BISMUTH SUBSALICYLATE 524 MG/30 ML PO PRN (17:28)
[2021-10-03] MEDS ORDERED: DICYCLOMINE HCL 10 MG CAPSULE PO PRN (17:28)
[2021-10-03] MEDS ORDERED: MAGNESIUM CITRATE 300 ML BOTTLE PO PRN (17:28)
[2021-10-03] MEDS ORDERED: IBUPROFEN 600 MG TABLET (FP) PO PRN (17:28)
[2021-10-03] MEDS ORDERED: LOPERAMIDE HCL 2 MG CAPSULE PO PRN (17:28)
[2021-10-03] MEDS ORDERED: ALBUTEROL SO4 HFA INHALER IH PRN (18:31)
[2021-10-03] MEDS: THIAMINE HCL 100 MG TABLET (FP) PO SCH (22:56)
[2021-10-03] MEDS: ATORVASTATIN CA 20 MG TABLET (FP) PO SCH (22:56)
[2021-10-03] MEDS: LORazepam 2 MG TABLET PO SCH (22:56)
[2021-10-03] MEDS: MELATONIN 5 MG TABLETS PO SCH (22:59)
[2021-10-04] MEDS: LORazepam 2 MG TABLET PO SCH ×4 (07:09→23:43)
[2021-10-04 10:28] LABS: HEMATOCRIT 41.6 % (35.4-49); HEMOGLOBIN 13.8 GM/dL (11.7-16.9); MCHC 33.2 g/dl (32.0-35.9); MEAN CELL VOLUME 84.4 fl (80-96); MEAN PLT VOLUME 8.7 fl (7.5-11.1); PLATELET COUNT 226 10^3/uL (134-434); RBC 4.93 M/mm3 (4.00-5.60); RDW 14.1 % (11.9-15.9); WHITE BLOOD COUNT 7.9 K/mm3 (4.0-10.0)
[2021-10-04 10:32] LABS: ALBUMIN 3.6 g/dl (3.4-5.0); BLOOD UREA NITROGEN 7.7 mg/dL (7-18); CALCIUM 8.8 mg/dL (8.5-10.1)
[2021-10-04 10:35] LABS: CREATININE 0.8 mg/dL (0.55-1.3)
[2021-10-04 10:37] LABS: BILIRUBIN,TOTAL 0.7 mg/dL (0.2-1); TOT PROT 6.6 g/dl (6.4-8.2)
[2021-10-04] MEDS: FAMOTIDINE 20 MG TABLET PO SCH (10:45)
[2021-10-04] MEDS: PRENATAL VITAMINS W/ FOLIC ACID TABLET (FP) PO SCH (10:45)
[2021-10-04] MEDS: THIAMINE HCL 100 MG TABLET (FP) PO SCH (23:43)
[2021-10-04] MEDS: ATORVASTATIN CA 20 MG TABLET (FP) PO SCH (23:44)
[2021-10-04] MEDS: MELATONIN 5 MG TABLETS PO SCH (23:44)
[2021-10-05] MEDS: LORazepam 1 MG TABLET PO SCH ×2 (06:11→11:12)
[2021-10-05 10:32] VITALS: BP 147/88; PULSE 87; TEMP 98.1
[2021-10-05] MEDS: FAMOTIDINE 20 MG TABLET PO SCH (11:11)
[2021-10-05] MEDS: PRENATAL VITAMINS W/ FOLIC ACID TABLET (FP) PO SCH (11:11)
[2021-10-06] MEDS ORDERED: LORazepam 0.5 MG TABLET PO PRN
[2021-10-06] MEDS ORDERED: LORazepam 0.5 MG TABLET PO SCH (05:00)
[2021-10-07] MEDS ORDERED: LORazepam 0.5 MG TABLET PO ONE (05:00)
== END 2021-10-05 12:40 | disposition home or self-care (01) | DRG 774 ==
LOC: YASAS 14:11 → Y6N 18:14
PROVIDERS: ADMIT Allergy & Immunology; ATTEND Surgery
PROC: HZ2ZZZZ Detoxification Services for Substance Abuse Treatment (ICD-10-PCS; principal; 2021-10-03)
DX: F10.230 Alcohol dependence with withdrawal, uncomplicated (principal); F14.20 Cocaine dependence, uncomplicated; F12.20 Cannabis dependence, uncomplicated; F17.210 Nicotine dependence, cigarettes, uncomplicated; F31.81 Bipolar II disorder; E78.5 Hyperlipidemia, unspecified; I10 Essential (primary) hypertension; J45.20 Mild intermittent asthma, uncomplicated; R73.9 Hyperglycemia, unspecified; Z91.013 Allergy to seafood
CPT/HCPCS: 36415; 80053; 85027; 86780; C9803-CS; U0003; U0005

== ENCOUNTER 2021-11-03 14:05 | Inpatient (IN) | payer OTHER ==
[2021-11-03 14:47] VITALS: BMI 26.4
[2021-11-03] MEDS ORDERED: IBUPROFEN 400 MG TABLET (FP) PO PRN (15:57)
[2021-11-03] MEDS ORDERED: BISMUTH SUBSALICYLATE 524 MG/30 ML PO PRN (15:57)
[2021-11-03] MEDS ORDERED: ACETAMINOPHEN 325 MG TABLET (FP) PO PRN (15:57)
[2021-11-03] MEDS ORDERED: MAGNESIUM CITRATE 300 ML BOTTLE PO PRN (15:57)
[2021-11-03] MEDS ORDERED: MAGNESIUM HYDROX 2400MG/30ML ORAL SUSPENSION 30 ML CUP PO PRN (15:57)
[2021-11-03] MEDS ORDERED: BENZOCAINE/MENTHOL (CHLORASEPTIC ) LOZENGE MM PRN (15:57)
[2021-11-03] MEDS ORDERED: ONDANSETRON *ODT* 4 MG TABLET SL PRN (15:57)
[2021-11-03] MEDS ORDERED: chlordiazePOXIDE HCL 25 MG CAPSULE PO PRN (15:57)
[2021-11-03] MEDS ORDERED: NICOTINE 10 MG CARTRIDGE (INHALER) IH PRN (15:57)
[2021-11-03] MEDS ORDERED: DICYCLOMINE HCL 10 MG CAPSULE PO PRN (15:57)
[2021-11-03] MEDS ORDERED: LOPERAMIDE HCL 2 MG CAPSULE PO PRN (15:57)
[2021-11-03] MEDS: chlordiazePOXIDE HCL 25 MG CAPSULE PO SCH ×2 (18:30→22:43)
[2021-11-03] MEDS: hydrOXYzine PAMOATE 25 MG CAPSULE (FP) PO SCH ×2 (19:30→22:48)
[2021-11-03] MEDS: PRENATAL VITAMINS W/ FOLIC ACID TABLET (FP) PO SCH (19:30)
[2021-11-03] MEDS: MELATONIN 5 MG TABLETS PO SCH (22:43)
[2021-11-03] MEDS: MAG HYDROX/AL HYDROX/SIMETH 30 ML UNIT-DOSE CUP PO PRN (22:45)
[2021-11-03] MEDS: THIAMINE HCL 100 MG TABLET (FP) PO SCH (22:48)
[2021-11-04] MEDS: chlordiazePOXIDE HCL 25 MG CAPSULE PO SCH ×4 (05:58→23:09)
[2021-11-04] MEDS: hydrOXYzine PAMOATE 25 MG CAPSULE (FP) PO SCH ×5 (05:58→23:09)
[2021-11-04] MEDS ORDERED: ALBUTEROL SO4 HFA INHALER IH PRN (08:55)
[2021-11-04] MEDS: amLODIPine BESYLATE 5 MG TABLET (FP) PO SCH (10:36)
[2021-11-04] MEDS: FAMOTIDINE 20 MG TABLET PO SCH (10:36)
[2021-11-04] MEDS: PRENATAL VITAMINS W/ FOLIC ACID TABLET (FP) PO SCH (10:37)
[2021-11-04] MEDS: IBUPROFEN 600 MG TABLET (FP) PO PRN (10:40)
[2021-11-04 11:14] LABS: HEMATOCRIT 42.5 % (35.4-49); MCH 28.5 pg (25.7-33.7); MEAN CELL VOLUME 86.1 fl (80-96); MEAN PLT VOLUME 8.7 fl (7.5-11.1); PLATELET COUNT 302 10^3/uL (134-434); RBC 4.93 M/mm3 (4.00-5.60); RDW 16.3 % (11.9-15.9); WHITE BLOOD COUNT 7.5 K/mm3 (4.0-10.0)
[2021-11-04 11:21] LABS: CALCIUM 9.3 mg/dL (8.5-10.1)
[2021-11-04 11:22] LABS: ALBUMIN 3.6 g/dl (3.4-5.0)
[2021-11-04 11:23] LABS: BLOOD UREA NITROGEN 6.6 mg/dL (7-18)
[2021-11-04 11:24] LABS: CREATININE 0.7 mg/dL (0.55-1.3)
[2021-11-04 11:28] LABS: BILIRUBIN,TOTAL 1.3 mg/dL (0.2-1)
[2021-11-04] MEDS: MAG HYDROX/AL HYDROX/SIMETH 30 ML UNIT-DOSE CUP PO PRN (17:16)
[2021-11-04] MEDS: THIAMINE HCL 100 MG TABLET (FP) PO SCH (23:09)
[2021-11-04] MEDS: MELATONIN 5 MG TABLETS PO SCH (23:09)
[2021-11-05] MEDS: hydrOXYzine PAMOATE 25 MG CAPSULE (FP) PO SCH ×5 (05:46→23:09)
[2021-11-05] MEDS: chlordiazePOXIDE HCL 25 MG CAPSULE PO SCH ×4 (05:46→23:09)
[2021-11-05] MEDS: ACETAMINOPHEN 325 MG TABLET (FP) PO PRN ×2 (05:47→11:11)
[2021-11-05] MEDS: PRENATAL VITAMINS W/ FOLIC ACID TABLET (FP) PO SCH (11:08)
[2021-11-05] MEDS: METHOCARBAMOL 500 MG TABLET PO PRN (11:08)
[2021-11-05] MEDS: FAMOTIDINE 20 MG TABLET PO SCH (11:09)
[2021-11-05] MEDS: amLODIPine BESYLATE 5 MG TABLET (FP) PO SCH (11:09)
[2021-11-05] MEDS: CHLORHEXIDINE GLUCONATE 0.12% 15ML CUP MM SCH ×2 (11:10→23:09)
[2021-11-05] MEDS: IBUPROFEN 600 MG TABLET (FP) PO PRN (17:59)
[2021-11-05] MEDS: MELATONIN 5 MG TABLETS PO SCH (23:09)
[2021-11-05] MEDS: THIAMINE HCL 100 MG TABLET (FP) PO SCH (23:09)
[2021-11-06] MEDS ORDERED: chlordiazePOXIDE HCL 10 MG CAPSULE PO PRN
[2021-11-06] MEDS: chlordiazePOXIDE HCL 10 MG CAPSULE PO SCH ×3 (05:22→17:47)
[2021-11-06] MEDS: hydrOXYzine PAMOATE 25 MG CAPSULE (FP) PO SCH ×4 (05:22→17:47)
[2021-11-06] MEDS: IBUPROFEN 600 MG TABLET (FP) PO PRN (05:23)
[2021-11-06] MEDS: METHOCARBAMOL 500 MG TABLET PO PRN (10:32)
[2021-11-06] MEDS: FAMOTIDINE 20 MG TABLET PO SCH (10:32)
[2021-11-06] MEDS: amLODIPine BESYLATE 5 MG TABLET (FP) PO SCH (10:32)
[2021-11-06] MEDS: PRENATAL VITAMINS W/ FOLIC ACID TABLET (FP) PO SCH (10:32)
[2021-11-06] MEDS: CHLORHEXIDINE GLUCONATE 0.12% 15ML CUP MM SCH (10:33)
[2021-11-06] MEDS ORDERED: LIDOCAINE VISCOUS 2% ORAL/TOP 100 ML BOTTLE MM ONE (15:04)
[2021-11-06] MEDS ORDERED: LIDOCAINE VISCOUS 2% ORAL/TOP 15 ML UNIT-DOSE CUP MM PRN (15:05)
[2021-11-06] MEDS ORDERED: LIDOCAINE VISCOUS 2% ORAL/TOP 100 ML BOTTLE MM SCH (17:00)
[2021-11-07] MEDS: MELATONIN 5 MG TABLETS PO SCH (00:08)
[2021-11-07] MEDS: hydrOXYzine PAMOATE 25 MG CAPSULE (FP) PO SCH ×4 (00:08→13:05)
[2021-11-07] MEDS: CHLORHEXIDINE GLUCONATE 0.12% 15ML CUP MM SCH ×2 (00:08→10:27)
[2021-11-07] MEDS: THIAMINE HCL 100 MG TABLET (FP) PO SCH (00:09)
[2021-11-07] MEDS: chlordiazePOXIDE HCL 10 MG CAPSULE PO SCH (00:13)
[2021-11-07] MEDS ORDERED: chlordiazePOXIDE HCL 10 MG CAPSULE PO SCH (05:00)
[2021-11-07] MEDS: IBUPROFEN 600 MG TABLET (FP) PO PRN (05:23)
[2021-11-07 09:47] VITALS: BP 116/74; PULSE 84; RESP 19; TEMP 97.7
[2021-11-07] MEDS: PRENATAL VITAMINS W/ FOLIC ACID TABLET (FP) PO SCH (10:27)
[2021-11-07] MEDS: amLODIPine BESYLATE 5 MG TABLET (FP) PO SCH (10:27)
[2021-11-07] MEDS: FAMOTIDINE 20 MG TABLET PO SCH (10:27)
[2021-11-08] MEDS ORDERED: chlordiazePOXIDE HCL 10 MG CAPSULE PO ONE (05:00)
== END 2021-11-07 13:05 | disposition home or self-care (01) | DRG 774 ==
LOC: SUATTDRO 14:05 → YASAS 14:05 → Y6N 16:51
PROVIDERS: ADMIT Allergy & Immunology; ATTEND Surgery
PROC: HZ2ZZZZ Detoxification Services for Substance Abuse Treatment (ICD-10-PCS; principal; 2021-11-03)
DX: F10.230 Alcohol dependence with withdrawal, uncomplicated (principal); F14.20 Cocaine dependence, uncomplicated; F13.20 Sedative, hypnotic or anxiolytic dependence, uncomplicated; F12.20 Cannabis dependence, uncomplicated; F31.9 Bipolar disorder, unspecified; F19.280 Other psychoactive substance dependence with psychoactive substance-induced anxiety disorder; F19.282 Other psychoactive substance dependence with psychoactive substance-induced sleep disorder; F19.24 Other psychoactive substance dependence with psychoactive substance-induced mood disorder; E78.5 Hyperlipidemia, unspecified; E11.9 Type 2 diabetes mellitus without complications; M54.50 Low back pain, unspecified; G89.29 Other chronic pain; Z91.410 Personal history of adult physical and sexual abuse; Z91.013 Allergy to seafood; Z59.00 Homelessness unspecified
CPT/HCPCS: 36415; 74018-TC-FY; 80053; 85027; 86780; 87811; C9803-CS; U0003; U0005

== ENCOUNTER 2022-02-16 12:07 | Inpatient (IN) | payer OTHER ==
[2022-02-16 12:31] VITALS: BMI 25.7
[2022-02-16] MEDS ORDERED: BISMUTH SUBSALICYLATE 524 MG/30 ML PO PRN (12:39)
[2022-02-16] MEDS ORDERED: NALOXONE HCL (KLOXXADO) 8 MG SPRAY NS PRN (12:39)
[2022-02-16] MEDS ORDERED: ONDANSETRON *ODT* 4 MG TABLET SL PRN (12:39)
[2022-02-16] MEDS ORDERED: IBUPROFEN 400 MG TABLET (FP) PO PRN (12:39)
[2022-02-16] MEDS ORDERED: METHOCARBAMOL 500 MG TABLET PO PRN (12:39)
[2022-02-16] MEDS ORDERED: BENZOCAINE/MENTHOL (CHLORASEPTIC ) LOZENGE MM PRN (12:39)
[2022-02-16] MEDS ORDERED: POLYETHYLENE GLYCOL (HEALTHYLAX) 3350 17 GM PACKET PO PRN (12:39)
[2022-02-16] MEDS ORDERED: IBUPROFEN 600 MG TABLET (FP) PO PRN (12:39)
[2022-02-16] MEDS ORDERED: LOPERAMIDE HCL 2 MG CAPSULE PO PRN (12:39)
[2022-02-16] MEDS ORDERED: MAG HYDROX/AL HYDROX/SIMETH 30 ML UNIT-DOSE CUP PO PRN (12:39)
[2022-02-16] MEDS ORDERED: MAGNESIUM HYDROX 2400MG/30ML ORAL SUSPENSION 30 ML CUP PO PRN (12:39)
[2022-02-16] MEDS ORDERED: NICOTINE 10 MG CARTRIDGE (INHALER) IH PRN (12:39)
[2022-02-16] MEDS ORDERED: DICYCLOMINE HCL 10 MG CAPSULE PO PRN (12:39)
[2022-02-16] MEDS ORDERED: ACETAMINOPHEN 325 MG TABLET (FP) PO PRN ×2 (12:39)
[2022-02-16] MEDS ORDERED: ALBUTEROL SO4 HFA INHALER IH PRN (12:42)
[2022-02-16] MEDS: PRENATAL VITAMINS W/ FOLIC ACID TABLET (FP) PO SCH (15:35)
[2022-02-16] MEDS: FAMOTIDINE 20 MG TABLET PO SCH (15:35)
[2022-02-16] MEDS: ATORVASTATIN CA 20 MG TABLET (FP) PO SCH (15:35)
[2022-02-16] MEDS: amLODIPine BESYLATE 5 MG TABLET (FP) PO SCH (15:35)
[2022-02-16 16:09] LABS: HEMATOCRIT 42.1 % (35.4-49); HEMOGLOBIN 13.8 GM/dL (11.7-16.9); MCH 29.3 pg (25.7-33.7); MCHC 32.7 g/dl (32.0-35.9); MEAN CELL VOLUME 89.5 fl (80-96); MEAN PLT VOLUME 9.1 fl (7.5-11.1); PLATELET COUNT 246 10^3/uL (134-434); RDW 12.8 % (11.9-15.9); WHITE BLOOD COUNT 8.9 K/mm3 (4.0-10.0)
[2022-02-16 16:21] LABS: ALBUMIN 3.6 g/dl (3.4-5.0); BLOOD UREA NITROGEN 14.9 mg/dL (7-18); CALCIUM 8.8 mg/dL (8.5-10.1)
[2022-02-16 16:24] LABS: CREATININE 0.8 mg/dL (0.55-1.3)
[2022-02-16 16:26] LABS: BILIRUBIN,TOTAL 0.2 mg/dL (0.2-1); TOT PROT 6.7 g/dl (6.4-8.2)
[2022-02-16] MEDS: chlordiazePOXIDE HCL 25 MG CAPSULE PO SCH ×2 (17:45→22:20)
[2022-02-16] MEDS: THIAMINE HCL 100 MG TABLET (FP) PO SCH (22:20)
[2022-02-16] MEDS: MELATONIN 5 MG TABLETS PO SCH (22:20)
[2022-02-17] MEDS: chlordiazePOXIDE HCL 25 MG CAPSULE PO SCH ×2 (06:20→10:23)
[2022-02-17 09:53] VITALS: RESP 18
[2022-02-17] MEDS: amLODIPine BESYLATE 5 MG TABLET (FP) PO SCH (10:22)
[2022-02-17] MEDS: ATORVASTATIN CA 20 MG TABLET (FP) PO SCH (10:22)
[2022-02-17] MEDS: FAMOTIDINE 20 MG TABLET PO SCH (10:23)
[2022-02-17] MEDS: PRENATAL VITAMINS W/ FOLIC ACID TABLET (FP) PO SCH (10:23)
[2022-02-17] MEDS ORDERED: LORazepam 1 MG TABLET PO PRN (10:24)
[2022-02-17] MEDS: LORazepam 2 MG TABLET PO SCH ×3 (11:14→23:02)
[2022-02-17] MEDS: THIAMINE HCL 100 MG TABLET (FP) PO SCH (23:02)
[2022-02-17] MEDS: MELATONIN 5 MG TABLETS PO SCH (23:02)
[2022-02-18] MEDS ORDERED: chlordiazePOXIDE HCL 25 MG CAPSULE PO SCH (05:00)
[2022-02-18 05:54] VITALS: BP 122/89; PULSE 71; TEMP 97.3
[2022-02-18] MEDS: LORazepam 2 MG TABLET PO SCH (06:06)
[2022-02-19] MEDS ORDERED: LORazepam 1 MG TABLET PO SCH (05:00)
[2022-02-19] MEDS ORDERED: chlordiazePOXIDE HCL 10 MG CAPSULE PO SCH (05:00)
[2022-02-20] MEDS ORDERED: LORazepam 0.5 MG TABLET PO PRN
[2022-02-20] MEDS ORDERED: chlordiazePOXIDE HCL 10 MG CAPSULE PO SCH (05:00)
[2022-02-20] MEDS ORDERED: LORazepam 0.5 MG TABLET PO SCH (05:00)
[2022-02-21] MEDS ORDERED: LORazepam 0.5 MG TABLET PO ONE (05:00)
[2022-02-21] MEDS ORDERED: chlordiazePOXIDE HCL 10 MG CAPSULE PO ONE (05:00)
== END 2022-02-18 09:15 | disposition left against medical advice (07) | DRG 770 ==
LOC: YASAS 12:07 → Y3N 14:10
PROVIDERS: ADMIT Allergy & Immunology; ATTEND Surgery
PROC: HZ2ZZZZ Detoxification Services for Substance Abuse Treatment (ICD-10-PCS; principal; 2022-02-16)
DX: F10.230 Alcohol dependence with withdrawal, uncomplicated (principal); F13.20 Sedative, hypnotic or anxiolytic dependence, uncomplicated; F12.20 Cannabis dependence, uncomplicated; F31.9 Bipolar disorder, unspecified; F41.9 Anxiety disorder, unspecified; E78.2 Mixed hyperlipidemia; E11.9 Type 2 diabetes mellitus without complications; I10 Essential (primary) hypertension; J45.20 Mild intermittent asthma, uncomplicated; K21.9 Gastro-esophageal reflux disease without esophagitis; M54.50 Low back pain, unspecified; G89.18 Other acute postprocedural pain; Z87.891 Personal history of nicotine dependence; Z56.0 Unemployment, unspecified; Z59.00 Homelessness unspecified
CPT/HCPCS: 36415; 80053; 85027; 86780; C9803-CS; U0003; U0005

== ENCOUNTER 2022-04-02 13:36 | Inpatient (IN) | payer OTHER ==
[2022-04-02 16:32] VITALS: BMI 27.5
[2022-04-02] MEDS ORDERED: ONDANSETRON *ODT* 4 MG TABLET SL PRN (17:59)
[2022-04-02] MEDS ORDERED: chlordiazePOXIDE HCL 25 MG CAPSULE PO PRN (17:59)
[2022-04-02] MEDS ORDERED: NALOXONE HCL (KLOXXADO) 8 MG SPRAY NS PRN (17:59)
[2022-04-02] MEDS ORDERED: MAGNESIUM HYDROX 2400MG/30ML ORAL SUSPENSION 30 ML CUP PO PRN (17:59)
[2022-04-02] MEDS ORDERED: POLYETHYLENE GLYCOL (HEALTHYLAX) 3350 17 GM PACKET PO PRN (17:59)
[2022-04-02] MEDS ORDERED: DICYCLOMINE HCL 10 MG CAPSULE PO PRN (17:59)
[2022-04-02] MEDS ORDERED: LOPERAMIDE HCL 2 MG CAPSULE PO PRN (17:59)
[2022-04-02] MEDS ORDERED: hydrOXYzine PAMOATE 25 MG CAPSULE (FP) PO PRN (17:59)
[2022-04-02] MEDS ORDERED: ACETAMINOPHEN 325 MG TABLET (FP) PO PRN ×2 (17:59)
[2022-04-02] MEDS ORDERED: MAG HYDROX/AL HYDROX/SIMETH 30 ML UNIT-DOSE CUP PO PRN (17:59)
[2022-04-02] MEDS ORDERED: BISMUTH SUBSALICYLATE 524 MG/30 ML PO PRN (17:59)
[2022-04-02] MEDS ORDERED: IBUPROFEN 400 MG TABLET (FP) PO PRN (17:59)
[2022-04-02] MEDS ORDERED: IBUPROFEN 600 MG TABLET (FP) PO PRN (17:59)
[2022-04-02] MEDS ORDERED: BENZOCAINE/MENTHOL (CHLORASEPTIC ) LOZENGE MM PRN (17:59)
[2022-04-02] MEDS ORDERED: ALBUTEROL SO4 HFA INHALER IH PRN (18:02)
[2022-04-02] MEDS: chlordiazePOXIDE HCL 25 MG CAPSULE PO SCH (23:23)
[2022-04-02] MEDS: FAMOTIDINE 20 MG TABLET PO SCH (23:23)
[2022-04-02] MEDS: THIAMINE HCL 100 MG TABLET (FP) PO SCH (23:23)
[2022-04-02] MEDS: MELATONIN 5 MG TABLETS PO SCH (23:25)
[2022-04-03] MEDS: chlordiazePOXIDE HCL 25 MG CAPSULE PO SCH (06:23)
[2022-04-03] MEDS ORDERED: LORazepam 1 MG TABLET PO PRN (09:54)
[2022-04-03] MEDS: FAMOTIDINE 20 MG TABLET PO SCH ×2 (10:51→22:30)
[2022-04-03] MEDS: METHOCARBAMOL 500 MG TABLET PO PRN (10:51)
[2022-04-03] MEDS: LORazepam 2 MG TABLET PO SCH ×3 (10:51→22:30)
[2022-04-03] MEDS: PRENATAL VITAMINS W/ FOLIC ACID TABLET (FP) PO SCH (10:51)
[2022-04-03 14:32] LABS: HEMATOCRIT 42.1 % (35.4-49); HEMOGLOBIN 13.8 GM/dL (11.7-16.9); MCHC 32.7 g/dl (32.0-35.9); MEAN CELL VOLUME 88.7 fl (80-96); MEAN PLT VOLUME 8.8 fl (7.5-11.1); PLATELET COUNT 255 10^3/uL (134-434); RBC 4.75 M/mm3 (4.00-5.60); RDW 12.9 % (11.9-15.9); WHITE BLOOD COUNT 7.4 K/mm3 (4.0-10.0)
[2022-04-03 15:27] LABS: ALBUMIN 3.6 g/dl (3.4-5.0); BLOOD UREA NITROGEN 10.9 mg/dL (7-18)
[2022-04-03 15:30] LABS: CREATININE 0.9 mg/dL (0.55-1.3)
[2022-04-03 15:31] LABS: TOT PROT 6.9 g/dl (6.4-8.2)
[2022-04-03 15:32] LABS: BILIRUBIN,TOTAL 0.6 mg/dL (0.2-1)
[2022-04-03] MEDS: THIAMINE HCL 100 MG TABLET (FP) PO SCH (22:30)
[2022-04-03] MEDS: MELATONIN 5 MG TABLETS PO SCH (23:14)
[2022-04-04] MEDS ORDERED: chlordiazePOXIDE HCL 25 MG CAPSULE PO SCH (05:00)
[2022-04-04] MEDS: LORazepam 2 MG TABLET PO SCH ×5 (06:12→22:43)
[2022-04-04] MEDS: PRENATAL VITAMINS W/ FOLIC ACID TABLET (FP) PO SCH (11:02)
[2022-04-04] MEDS: FAMOTIDINE 20 MG TABLET PO SCH ×2 (11:02→22:43)
[2022-04-04] MEDS: METHOCARBAMOL 500 MG TABLET PO PRN (11:04)
[2022-04-04] MEDS: MELATONIN 5 MG TABLETS PO SCH (22:43)
[2022-04-04] MEDS: THIAMINE HCL 100 MG TABLET (FP) PO SCH (22:43)
[2022-04-05] MEDS ORDERED: chlordiazePOXIDE HCL 10 MG CAPSULE PO PRN
[2022-04-05] MEDS ORDERED: chlordiazePOXIDE HCL 10 MG CAPSULE PO SCH (05:00)
[2022-04-05] MEDS: LORazepam 1 MG TABLET PO SCH ×4 (05:43→22:42)
[2022-04-05] MEDS: PRENATAL VITAMINS W/ FOLIC ACID TABLET (FP) PO SCH (10:32)
[2022-04-05] MEDS: FAMOTIDINE 20 MG TABLET PO SCH ×2 (10:32→22:41)
[2022-04-05] MEDS: MELATONIN 5 MG TABLETS PO SCH (22:41)
[2022-04-05] MEDS: THIAMINE HCL 100 MG TABLET (FP) PO SCH (22:42)
[2022-04-06] MEDS ORDERED: LORazepam 0.5 MG TABLET PO PRN
[2022-04-06] MEDS ORDERED: chlordiazePOXIDE HCL 10 MG CAPSULE PO SCH (05:00)
[2022-04-06] MEDS: LORazepam 0.5 MG TABLET PO SCH ×4 (05:01→22:58)
[2022-04-06] MEDS: FAMOTIDINE 20 MG TABLET PO SCH ×2 (10:03→22:58)
[2022-04-06] MEDS: PRENATAL VITAMINS W/ FOLIC ACID TABLET (FP) PO SCH (10:03)
[2022-04-06] MEDS: THIAMINE HCL 100 MG TABLET (FP) PO SCH (22:58)
[2022-04-06] MEDS: MELATONIN 5 MG TABLETS PO SCH (22:58)
[2022-04-07] MEDS ORDERED: chlordiazePOXIDE HCL 10 MG CAPSULE PO ONE (05:00)
[2022-04-07] MEDS ORDERED: LORazepam 0.5 MG TABLET PO ONE (05:00)
[2022-04-07 09:33] VITALS: BP 136/80; PULSE 96; RESP 18; TEMP 98
[2022-04-07] MEDS: FAMOTIDINE 20 MG TABLET PO SCH (10:28)
[2022-04-07] MEDS: PRENATAL VITAMINS W/ FOLIC ACID TABLET (FP) PO SCH (10:28)
== END 2022-04-07 10:50 | disposition other institution (70) | DRG 774 ==
LOC: YASAS 13:36 → Y6N 18:32
PROVIDERS: ADMIT Allergy & Immunology; ATTEND Surgery
PROC: HZ2ZZZZ Detoxification Services for Substance Abuse Treatment (ICD-10-PCS; principal; 2022-04-02)
DX: F10.230 Alcohol dependence with withdrawal, uncomplicated (principal); F14.20 Cocaine dependence, uncomplicated; F12.20 Cannabis dependence, uncomplicated; F31.9 Bipolar disorder, unspecified; E78.2 Mixed hyperlipidemia; E11.9 Type 2 diabetes mellitus without complications; I10 Essential (primary) hypertension; J45.20 Mild intermittent asthma, uncomplicated; K21.9 Gastro-esophageal reflux disease without esophagitis; Z87.891 Personal history of nicotine dependence; Z91.013 Allergy to seafood
CPT/HCPCS: 36415; 80053; 82962; 85027; 86780; 87811; C9803-CS; U0003; U0005

== ENCOUNTER 2022-05-18 11:12 | Inpatient (IN) | payer OTHER ==
[2022-05-18 12:05] VITALS: BMI 26.5
[2022-05-18] MEDS ORDERED: BENZOCAINE/MENTHOL (CHLORASEPTIC ) LOZENGE MM PRN (12:09)
[2022-05-18] MEDS ORDERED: IBUPROFEN 600 MG TABLET (FP) PO PRN (12:09)
[2022-05-18] MEDS ORDERED: LOPERAMIDE HCL 2 MG CAPSULE PO PRN (12:09)
[2022-05-18] MEDS ORDERED: ACETAMINOPHEN 325 MG TABLET (FP) PO PRN ×2 (12:09)
[2022-05-18] MEDS ORDERED: DICYCLOMINE HCL 10 MG CAPSULE PO PRN (12:09)
[2022-05-18] MEDS ORDERED: METHOCARBAMOL 500 MG TABLET PO PRN (12:09)
[2022-05-18] MEDS ORDERED: MAGNESIUM HYDROX 2400MG/30ML ORAL SUSPENSION 30 ML CUP PO PRN (12:09)
[2022-05-18] MEDS ORDERED: BISMUTH SUBSALICYLATE 524 MG/30 ML PO PRN (12:09)
[2022-05-18] MEDS ORDERED: IBUPROFEN 400 MG TABLET (FP) PO PRN (12:09)
[2022-05-18] MEDS ORDERED: POLYETHYLENE GLYCOL (HEALTHYLAX) 3350 17 GM PACKET PO PRN (12:09)
[2022-05-18] MEDS ORDERED: ONDANSETRON *ODT* 4 MG TABLET SL PRN (12:09)
[2022-05-18] MEDS ORDERED: chlordiazePOXIDE HCL 25 MG CAPSULE PO PRN (12:13)
[2022-05-18] MEDS ORDERED: TRIMETHOBENZAMIDE HCL 200MG/2ML INJ IM PRN (12:18)
[2022-05-18] MEDS ORDERED: LOPERAMIDE HCL 2 MG CAPSULE ONE (12:30)
[2022-05-18] MEDS ORDERED: amLODIPine BESYLATE 5 MG TABLET (FP) ONE (12:37)
[2022-05-18] MEDS ORDERED: chlordiazePOXIDE HCL 25 MG CAPSULE ONE (12:37)
[2022-05-18] MEDS: amLODIPine BESYLATE 5 MG TABLET (FP) PO SCH (12:47)
[2022-05-18] MEDS ORDERED: chlordiazePOXIDE HCL 25 MG CAPSULE PO ONE (13:00)
[2022-05-18] MEDS ORDERED: FAMOTIDINE 20 MG TABLET PO ONE (13:00)
[2022-05-18] MEDS ORDERED: LOPERAMIDE HCL 2 MG CAPSULE PO ONE (13:00)
[2022-05-18] MEDS: chlordiazePOXIDE HCL 25 MG CAPSULE PO SCH ×2 (17:40→22:39)
[2022-05-18] MEDS: MAG HYDROX/AL HYDROX/SIMETH 30 ML UNIT-DOSE CUP PO PRN (17:40)
[2022-05-18] MEDS: MELATONIN 5 MG TABLETS PO SCH (22:37)
[2022-05-18] MEDS: FAMOTIDINE 20 MG TABLET PO SCH (22:39)
[2022-05-18] MEDS: THIAMINE HCL 100 MG TABLET (FP) PO SCH (22:39)
[2022-05-19] MEDS: chlordiazePOXIDE HCL 25 MG CAPSULE PO SCH (06:19)
[2022-05-19] MEDS ORDERED: LORazepam 1 MG TABLET PO PRN (09:49)
[2022-05-19] MEDS: FAMOTIDINE 20 MG TABLET PO SCH ×2 (10:14→23:07)
[2022-05-19] MEDS: amLODIPine BESYLATE 5 MG TABLET (FP) PO SCH (10:14)
[2022-05-19] MEDS: PRENATAL VITAMINS W/ FOLIC ACID TABLET (FP) PO SCH (10:14)
[2022-05-19] MEDS: ATORVASTATIN CA 20 MG TABLET (FP) PO SCH (10:15)
[2022-05-19] MEDS: LORazepam 2 MG TABLET PO SCH ×3 (10:16→23:07)
[2022-05-19] MEDS: MELATONIN 5 MG TABLETS PO SCH (23:07)
[2022-05-19] MEDS: THIAMINE HCL 100 MG TABLET (FP) PO SCH (23:08)
[2022-05-20] MEDS ORDERED: chlordiazePOXIDE HCL 25 MG CAPSULE PO SCH (05:00)
[2022-05-20] MEDS: LORazepam 2 MG TABLET PO SCH ×4 (05:30→23:08)
[2022-05-20] MEDS: PRENATAL VITAMINS W/ FOLIC ACID TABLET (FP) PO SCH (10:27)
[2022-05-20] MEDS: FAMOTIDINE 20 MG TABLET PO SCH ×2 (10:27→23:09)
[2022-05-20] MEDS: ATORVASTATIN CA 20 MG TABLET (FP) PO SCH (10:27)
[2022-05-20] MEDS: amLODIPine BESYLATE 5 MG TABLET (FP) PO SCH (10:27)
[2022-05-20] MEDS: hydrOXYzine PAMOATE 25 MG CAPSULE (FP) PO PRN (10:27)
[2022-05-20] MEDS: ALBUTEROL SO4 HFA INHALER IH PRN ×2 (11:05→16:40)
[2022-05-20] MEDS: MELATONIN 5 MG TABLETS PO SCH (23:09)
[2022-05-20] MEDS: THIAMINE HCL 100 MG TABLET (FP) PO SCH (23:09)
[2022-05-21] MEDS ORDERED: chlordiazePOXIDE HCL 10 MG CAPSULE PO PRN
[2022-05-21] MEDS ORDERED: chlordiazePOXIDE HCL 10 MG CAPSULE PO SCH (05:00)
[2022-05-21] MEDS: LORazepam 1 MG TABLET PO SCH ×2 (05:22→11:05)
[2022-05-21] MEDS: ALBUTEROL SO4 HFA INHALER IH PRN (05:57)
[2022-05-21] MEDS: MAG HYDROX/AL HYDROX/SIMETH 30 ML UNIT-DOSE CUP PO PRN (09:04)
[2022-05-21] MEDS: hydrOXYzine PAMOATE 25 MG CAPSULE (FP) PO PRN (09:05)
[2022-05-21 09:37] VITALS: BP 136/82; PULSE 115; RESP 20; TEMP 98.1
[2022-05-21] MEDS: ATORVASTATIN CA 20 MG TABLET (FP) PO SCH (11:04)
[2022-05-21] MEDS: amLODIPine BESYLATE 5 MG TABLET (FP) PO SCH (11:04)
[2022-05-21] MEDS: FAMOTIDINE 20 MG TABLET PO SCH (11:04)
[2022-05-21] MEDS: PRENATAL VITAMINS W/ FOLIC ACID TABLET (FP) PO SCH (11:05)
[2022-05-22] MEDS ORDERED: LORazepam 0.5 MG TABLET PO PRN
[2022-05-22] MEDS ORDERED: LORazepam 0.5 MG TABLET PO SCH (05:00)
[2022-05-22] MEDS ORDERED: chlordiazePOXIDE HCL 10 MG CAPSULE PO SCH (05:00)
[2022-05-23] MEDS ORDERED: chlordiazePOXIDE HCL 10 MG CAPSULE PO ONE (05:00)
[2022-05-23] MEDS ORDERED: LORazepam 0.5 MG TABLET PO ONE (05:00)
== END 2022-05-21 10:40 | disposition left against medical advice (07) | DRG 770 ==
LOC: YASAS 11:12 → Y6N 12:18
PROVIDERS: ADMIT Allergy & Immunology; ATTEND Surgery
PROC: HZ2ZZZZ Detoxification Services for Substance Abuse Treatment (ICD-10-PCS; principal; 2022-05-18)
DX: F10.20 Alcohol dependence, uncomplicated (principal); F14.20 Cocaine dependence, uncomplicated; F12.20 Cannabis dependence, uncomplicated; F17.210 Nicotine dependence, cigarettes, uncomplicated; F31.9 Bipolar disorder, unspecified; E78.5 Hyperlipidemia, unspecified; E11.9 Type 2 diabetes mellitus without complications; I10 Essential (primary) hypertension; J45.20 Mild intermittent asthma, uncomplicated; K21.9 Gastro-esophageal reflux disease without esophagitis; Z62.810 Personal history of physical and sexual abuse in childhood; Z91.013 Allergy to seafood
CPT/HCPCS: 82962; 87811; C9803-CS; Q0162; U0003; U0005

== ENCOUNTER 2022-09-16 14:09 | Inpatient (IN) | payer OTHER ==
[2022-09-16 14:27] VITALS: BMI 26.4
[2022-09-16] MEDS ORDERED: NALOXONE HCL 0.4 MG/ML VIAL IM PRN (19:05)
[2022-09-16] MEDS ORDERED: hydrOXYzine PAMOATE 25 MG CAPSULE (FP) PO PRN (19:05)
[2022-09-16] MEDS ORDERED: ACETAMINOPHEN 325 MG TABLET (FP) PO PRN (19:05)
[2022-09-16] MEDS ORDERED: ONDANSETRON *ODT* 4 MG TABLET SL PRN (19:05)
[2022-09-16] MEDS ORDERED: POLYETHYLENE GLYCOL (HEALTHYLAX) 3350 17 GM PACKET PO PRN (19:05)
[2022-09-16] MEDS ORDERED: guaiFENesin 600 MG TABLET.ER (FP) PO PRN (19:05)
[2022-09-16] MEDS ORDERED: DICYCLOMINE HCL 10 MG CAPSULE PO PRN (19:05)
[2022-09-16] MEDS ORDERED: IBUPROFEN 400 MG TABLET (FP) PO PRN (19:05)
[2022-09-16] MEDS ORDERED: NALOXONE HCL (KLOXXADO) 8 MG SPRAY NS PRN (19:05)
[2022-09-16] MEDS ORDERED: BENZOCAINE/MENTHOL (CHLORASEPTIC ) LOZENGE MM PRN (19:05)
[2022-09-16] MEDS ORDERED: chlordiazePOXIDE HCL 25 MG CAPSULE PO PRN (19:05)
[2022-09-16] MEDS ORDERED: BENZONATATE 200 MG CAPSULE PO PRN (19:05)
[2022-09-16] MEDS ORDERED: MAG HYDROX/AL HYDROX/SIMETH 30 ML UNIT-DOSE CUP PO PRN (19:05)
[2022-09-16] MEDS ORDERED: BISMUTH SUBSALICYLATE 524 MG/30 ML PO PRN (19:05)
[2022-09-16] MEDS ORDERED: MAGNESIUM HYDROX 2400MG/30ML ORAL SUSPENSION 30 ML CUP PO PRN (19:05)
[2022-09-16] MEDS ORDERED: LOPERAMIDE HCL 2 MG CAPSULE PO PRN (19:05)
[2022-09-16] MEDS: THIAMINE HCL 100 MG TABLET (FP) PO SCH (22:26)
[2022-09-16] MEDS: MELATONIN 5 MG TABLETS PO SCH (22:26)
[2022-09-16] MEDS: chlordiazePOXIDE HCL 25 MG CAPSULE PO SCH (22:28)
[2022-09-17] MEDS: chlordiazePOXIDE HCL 25 MG CAPSULE PO SCH ×4 (06:00→22:40)
[2022-09-17] MEDS ORDERED: ALBUTEROL SO4 HFA INHALER IH PRN (07:59)
[2022-09-17] MEDS: IBUPROFEN 600 MG TABLET (FP) PO PRN ×2 (10:22→17:58)
[2022-09-17] MEDS: FAMOTIDINE 20 MG TABLET PO SCH (10:22)
[2022-09-17] MEDS: PRENATAL VITAMINS W/ FOLIC ACID TABLET (FP) PO SCH (10:22)
[2022-09-17] MEDS: amLODIPine BESYLATE 5 MG TABLET (FP) PO SCH (10:22)
[2022-09-17] MEDS: METHOCARBAMOL 500 MG TABLET PO PRN (10:23)
[2022-09-17] MEDS: THIAMINE HCL 100 MG TABLET (FP) PO SCH (22:40)
[2022-09-17] MEDS: MELATONIN 5 MG TABLETS PO SCH (22:40)
[2022-09-18] MEDS ORDERED: chlordiazePOXIDE HCL 25 MG CAPSULE PO SCH (05:00)
[2022-09-18] MEDS ORDERED: diazePAM 5 MG TABLET PO PRN (07:58)
[2022-09-18] MEDS: PRENATAL VITAMINS W/ FOLIC ACID TABLET (FP) PO SCH (10:20)
[2022-09-18] MEDS: FAMOTIDINE 20 MG TABLET PO SCH (10:20)
[2022-09-18] MEDS: amLODIPine BESYLATE 5 MG TABLET (FP) PO SCH (10:20)
[2022-09-18] MEDS: diazePAM 5 MG TABLET PO SCH ×3 (10:22→22:55)
[2022-09-18] MEDS ORDERED: ATORVASTATIN CA 20 MG TABLET (FP) PO SCH (22:00)
[2022-09-18] MEDS: MELATONIN 5 MG TABLETS PO SCH (22:54)
[2022-09-18] MEDS: THIAMINE HCL 100 MG TABLET (FP) PO SCH (22:54)
[2022-09-19] MEDS ORDERED: chlordiazePOXIDE HCL 10 MG CAPSULE PO PRN
[2022-09-19] MEDS ORDERED: chlordiazePOXIDE HCL 10 MG CAPSULE PO SCH (05:00)
[2022-09-19] MEDS: diazePAM 5 MG TABLET PO SCH (05:39)
[2022-09-19] MEDS: METHOCARBAMOL 500 MG TABLET PO PRN (05:40)
[2022-09-19 09:38] VITALS: BP 152/102; PULSE 90; RESP 17; TEMP 97
[2022-09-20] MEDS ORDERED: chlordiazePOXIDE HCL 10 MG CAPSULE PO SCH (05:00)
[2022-09-20] MEDS ORDERED: diazePAM 5 MG TABLET PO SCH (06:00)
[2022-09-21] MEDS ORDERED: chlordiazePOXIDE HCL 10 MG CAPSULE PO ONE (05:00)
[2022-09-21] MEDS ORDERED: diazePAM 5 MG TABLET PO SCH (06:00)
[2022-09-22] MEDS ORDERED: diazePAM 5 MG TABLET PO ONE (06:00)
== END 2022-09-19 09:30 | disposition left against medical advice (07) | DRG 770 ==
LOC: YASAS 14:09 → Y3N 20:08
PROVIDERS: ADMIT Allergy & Immunology; ATTEND Allergy & Immunology
PROC: HZ2ZZZZ Detoxification Services for Substance Abuse Treatment (ICD-10-PCS; principal; 2022-09-16)
DX: F10.230 Alcohol dependence with withdrawal, uncomplicated (principal); F14.20 Cocaine dependence, uncomplicated; F17.210 Nicotine dependence, cigarettes, uncomplicated; F31.9 Bipolar disorder, unspecified; E78.2 Mixed hyperlipidemia; E78.5 Hyperlipidemia, unspecified; I10 Essential (primary) hypertension; J45.40 Moderate persistent asthma, uncomplicated; K21.9 Gastro-esophageal reflux disease without esophagitis; E11.59 Type 2 diabetes mellitus with other circulatory complications; Z79.84 Long term (current) use of oral hypoglycemic drugs; M54.50 Low back pain, unspecified; G89.29 Other chronic pain
CPT/HCPCS: 87635

== ENCOUNTER 2022-11-16 14:13 | Inpatient (IN) | payer OTHER ==
[2022-11-16 15:24] VITALS: BMI 25.5
[2022-11-16] MEDS ORDERED: ALBUTEROL SO4 HFA INHALER IH PRN (19:17)
[2022-11-16] MEDS ORDERED: chlordiazePOXIDE HCL 25 MG CAPSULE PO PRN (19:18)
[2022-11-16] MEDS ORDERED: chlordiazePOXIDE HCL 25 MG CAPSULE PO ONE (19:30)
[2022-11-16] MEDS ORDERED: BENZOCAINE/MENTHOL (CHLORASEPTIC ) LOZENGE MM PRN (19:31)
[2022-11-16] MEDS ORDERED: BISMUTH SUBSALICYLATE 524 MG/30 ML PO PRN (19:31)
[2022-11-16] MEDS ORDERED: MAGNESIUM HYDROX 2400MG/30ML ORAL SUSPENSION 30 ML CUP PO PRN (19:31)
[2022-11-16] MEDS ORDERED: BENZONATATE 200 MG CAPSULE PO PRN (19:31)
[2022-11-16] MEDS ORDERED: METHOCARBAMOL 500 MG TABLET PO PRN (19:31)
[2022-11-16] MEDS ORDERED: POLYETHYLENE GLYCOL (HEALTHYLAX) 3350 17 GM PACKET PO PRN (19:31)
[2022-11-16] MEDS ORDERED: MAG HYDROX/AL HYDROX/SIMETH 30 ML UNIT-DOSE CUP PO PRN (19:31)
[2022-11-16] MEDS ORDERED: IBUPROFEN 400 MG TABLET (FP) PO PRN (19:31)
[2022-11-16] MEDS ORDERED: ACETAMINOPHEN 325 MG TABLET (FP) PO PRN (19:31)
[2022-11-16] MEDS ORDERED: P-EPHED 60MG/TRIPROLIDI 2.5MG TABLET PO PRN (19:31)
[2022-11-16] MEDS ORDERED: DICYCLOMINE HCL 10 MG CAPSULE PO PRN (19:31)
[2022-11-16] MEDS ORDERED: ONDANSETRON *ODT* 4 MG TABLET SL PRN (19:31)
[2022-11-16] MEDS ORDERED: IBUPROFEN 600 MG TABLET (FP) PO PRN (19:31)
[2022-11-16] MEDS ORDERED: guaiFENesin 600 MG TABLET.ER (FP) PO PRN (19:31)
[2022-11-16] MEDS ORDERED: NICOTINE POLACRILEX 2 MG GUM BUC PRN (19:31)
[2022-11-16] MEDS ORDERED: hydrOXYzine PAMOATE 25 MG CAPSULE (FP) PO PRN (19:31)
[2022-11-16] MEDS ORDERED: LOPERAMIDE HCL 2 MG CAPSULE PO PRN (19:31)
[2022-11-16] MEDS ORDERED: chlordiazePOXIDE HCL 25 MG CAPSULE ONE (20:00)
[2022-11-16] MEDS: MELATONIN 5 MG TABLETS PO SCH (22:22)
[2022-11-16] MEDS: chlordiazePOXIDE HCL 25 MG CAPSULE PO SCH (22:23)
[2022-11-16] MEDS: FAMOTIDINE 20 MG TABLET PO SCH (22:23)
[2022-11-16] MEDS: THIAMINE HCL 100 MG TABLET (FP) PO SCH (22:26)
[2022-11-17] MEDS: chlordiazePOXIDE HCL 25 MG CAPSULE PO SCH ×4 (05:58→22:43)
[2022-11-17] MEDS: FAMOTIDINE 20 MG TABLET PO SCH ×2 (10:22→22:41)
[2022-11-17] MEDS: amLODIPine BESYLATE 5 MG TABLET (FP) PO SCH (10:22)
[2022-11-17] MEDS: PRENATAL VITAMINS W/ FOLIC ACID TABLET (FP) PO SCH (10:22)
[2022-11-17 10:43] LABS: HEMATOCRIT 42.3 % (35.4-49); HEMOGLOBIN 14.2 GM/dL (11.7-16.9); MCH 29.5 pg (25.7-33.7); MCHC 33.7 g/dl (32.0-35.9); MEAN CELL VOLUME 87.7 fl (80-96); MEAN PLT VOLUME 8.9 fl (7.5-11.1); PLATELET COUNT 188 10^3/uL (134-434); RBC 4.82 M/mm3 (4.00-5.60); RDW 14.4 % (11.9-15.9); WHITE BLOOD COUNT 4.8 K/mm3 (4.0-10.0)
[2022-11-17 10:49] LABS: POTASSIUM 4.1 mmol/L (3.5-5.1)
[2022-11-17 11:01] LABS: ALBUMIN 3.6 g/dl (3.4-5.0); BLOOD UREA NITROGEN 7.1 mg/dL (7-18); CALCIUM 8.9 mg/dL (8.5-10.1)
[2022-11-17 11:04] LABS: CREATININE 0.7 mg/dL (0.55-1.3)
[2022-11-17 11:05] LABS: BILIRUBIN,TOTAL 0.9 mg/dL (0.2-1)
[2022-11-17 11:06] LABS: TOT PROT 6.9 g/dl (6.4-8.2)
[2022-11-17] MEDS: THIAMINE HCL 100 MG TABLET (FP) PO SCH (22:41)
[2022-11-17] MEDS: MELATONIN 5 MG TABLETS PO SCH (22:41)
[2022-11-18] MEDS: chlordiazePOXIDE HCL 25 MG CAPSULE PO SCH ×2 (05:51→10:04)
[2022-11-18 09:41] VITALS: BP 126/87; PULSE 73; RESP 18; TEMP 97.6
[2022-11-18] MEDS: amLODIPine BESYLATE 5 MG TABLET (FP) PO SCH (10:03)
[2022-11-18] MEDS: PRENATAL VITAMINS W/ FOLIC ACID TABLET (FP) PO SCH (10:04)
[2022-11-18] MEDS: FAMOTIDINE 20 MG TABLET PO SCH (10:04)
[2022-11-19] MEDS ORDERED: chlordiazePOXIDE HCL 10 MG CAPSULE PO PRN
[2022-11-19] MEDS ORDERED: chlordiazePOXIDE HCL 10 MG CAPSULE PO SCH (05:00)
[2022-11-20] MEDS ORDERED: chlordiazePOXIDE HCL 10 MG CAPSULE PO SCH (05:00)
[2022-11-21] MEDS ORDERED: chlordiazePOXIDE HCL 10 MG CAPSULE PO ONE (05:00)
== END 2022-11-18 09:52 | disposition left against medical advice (07) | DRG 770 ==
LOC: YASAS 14:13 → Y3N 20:27
PROVIDERS: ADMIT Allergy & Immunology; ATTEND Surgery
PROC: HZ2ZZZZ Detoxification Services for Substance Abuse Treatment (ICD-10-PCS; principal; 2022-11-16)
DX: F10.230 Alcohol dependence with withdrawal, uncomplicated (principal); F14.20 Cocaine dependence, uncomplicated; F12.20 Cannabis dependence, uncomplicated; I10 Essential (primary) hypertension; J45.909 Unspecified asthma, uncomplicated; K21.9 Gastro-esophageal reflux disease without esophagitis; Z87.891 Personal history of nicotine dependence
CPT/HCPCS: 36415; 80053; 85027; 86780; 87635

== ENCOUNTER 2023-01-02 19:06 | Inpatient (IN) | payer OTHER ==
[2023-01-02 19:50] VITALS: BMI 23.7
[2023-01-02] MEDS ORDERED: NALOXONE HCL (KLOXXADO) 8 MG SPRAY NS PRN (21:06)
[2023-01-02] MEDS ORDERED: ACETAMINOPHEN 325 MG TABLET (FP) PO PRN (21:06)
[2023-01-02] MEDS ORDERED: POLYETHYLENE GLYCOL (HEALTHYLAX) 3350 17 GM PACKET PO PRN (21:06)
[2023-01-02] MEDS ORDERED: chlordiazePOXIDE HCL 25 MG CAPSULE PO PRN (21:06)
[2023-01-02] MEDS ORDERED: BISMUTH SUBSALICYLATE 524 MG/30 ML PO PRN (21:06)
[2023-01-02] MEDS ORDERED: LOPERAMIDE HCL 2 MG CAPSULE PO PRN (21:06)
[2023-01-02] MEDS ORDERED: NALOXONE HCL 0.4 MG/ML VIAL IM PRN (21:06)
[2023-01-02] MEDS ORDERED: IBUPROFEN 600 MG TABLET (FP) PO PRN (21:06)
[2023-01-02] MEDS ORDERED: chlordiazePOXIDE HCL 25 MG CAPSULE PO ONE (21:06)
[2023-01-02] MEDS ORDERED: ONDANSETRON *ODT* 4 MG TABLET SL PRN (21:06)
[2023-01-02] MEDS ORDERED: MAGNESIUM HYDROX 2400MG/30ML ORAL SUSPENSION 30 ML CUP PO PRN (21:06)
[2023-01-02] MEDS ORDERED: hydrOXYzine PAMOATE 25 MG CAPSULE (FP) PO PRN (21:06)
[2023-01-02] MEDS ORDERED: METHOCARBAMOL 500 MG TABLET PO PRN (21:06)
[2023-01-02] MEDS ORDERED: BENZONATATE 200 MG CAPSULE PO PRN (21:06)
[2023-01-02] MEDS ORDERED: MAG HYDROX/AL HYDROX/SIMETH 30 ML UNIT-DOSE CUP PO PRN (21:06)
[2023-01-02] MEDS ORDERED: IBUPROFEN 400 MG TABLET (FP) PO PRN (21:06)
[2023-01-02] MEDS ORDERED: DICYCLOMINE HCL 10 MG CAPSULE PO PRN (21:06)
[2023-01-02] MEDS ORDERED: guaiFENesin 600 MG TABLET.ER (FP) PO PRN (21:06)
[2023-01-02] MEDS ORDERED: BENZOCAINE/MENTHOL (CHLORASEPTIC ) LOZENGE MM PRN (21:06)
[2023-01-02] MEDS ORDERED: ALBUTEROL SO4 HFA INHALER IH PRN (21:11)
[2023-01-02] MEDS ORDERED: chlordiazePOXIDE HCL 25 MG CAPSULE ONE (22:39)
[2023-01-02] MEDS ORDERED: MELATONIN 5 MG TABLETS ONE (22:40)
[2023-01-02] MEDS: MELATONIN 5 MG TABLETS PO SCH (22:46)
[2023-01-02] MEDS: THIAMINE HCL 100 MG TABLET (FP) PO SCH (22:46)
[2023-01-02] MEDS: chlordiazePOXIDE HCL 25 MG CAPSULE PO SCH (22:47)
[2023-01-02] MEDS: FAMOTIDINE 20 MG TABLET PO SCH (23:13)
[2023-01-03] MEDS: chlordiazePOXIDE HCL 25 MG CAPSULE PO SCH ×4 (05:59→23:16)
[2023-01-03] MEDS: amLODIPine BESYLATE 5 MG TABLET (FP) PO SCH (09:54)
[2023-01-03] MEDS: PRENATAL VITAMINS W/ FOLIC ACID TABLET (FP) PO SCH (09:54)
[2023-01-03] MEDS: FAMOTIDINE 20 MG TABLET PO SCH ×2 (09:54→23:16)
[2023-01-03] MEDS ORDERED: BACITRACIN 0.9 GM PACKET TP SCH (10:30)
[2023-01-03] MEDS ORDERED: ATORVASTATIN CA 20 MG TABLET (FP) PO SCH (22:00)
[2023-01-03] MEDS: MELATONIN 5 MG TABLETS PO SCH (23:15)
[2023-01-03] MEDS: THIAMINE HCL 100 MG TABLET (FP) PO SCH (23:16)
[2023-01-04] MEDS: chlordiazePOXIDE HCL 25 MG CAPSULE PO SCH ×2 (05:43→10:02)
[2023-01-04 09:34] VITALS: BP 132/88; PULSE 87; RESP 18; TEMP 97.8
[2023-01-04] MEDS ORDERED: BACITRACIN 0.9 GM PACKET TP SCH (10:00)
[2023-01-04] MEDS: PRENATAL VITAMINS W/ FOLIC ACID TABLET (FP) PO SCH (10:02)
[2023-01-04] MEDS: amLODIPine BESYLATE 5 MG TABLET (FP) PO SCH (10:02)
[2023-01-04] MEDS ORDERED: FAMOTIDINE 20 MG TABLET PO SCH (17:00)
[2023-01-05] MEDS ORDERED: chlordiazePOXIDE HCL 10 MG CAPSULE PO PRN
[2023-01-05] MEDS ORDERED: chlordiazePOXIDE HCL 10 MG CAPSULE PO SCH (05:00)
[2023-01-06] MEDS ORDERED: chlordiazePOXIDE HCL 10 MG CAPSULE PO SCH (05:00)
[2023-01-07] MEDS ORDERED: chlordiazePOXIDE HCL 10 MG CAPSULE PO ONE (05:00)
== END 2023-01-04 10:00 | disposition left against medical advice (07) | DRG 770 ==
LOC: YASAS 19:06 → Y3N 22:35
PROVIDERS: ADMIT Allergy & Immunology; ATTEND Surgery
PROC: HZ2ZZZZ Detoxification Services for Substance Abuse Treatment (ICD-10-PCS; principal; 2023-01-02)
DX: F10.230 Alcohol dependence with withdrawal, uncomplicated (principal); F14.20 Cocaine dependence, uncomplicated; F12.20 Cannabis dependence, uncomplicated; F41.9 Anxiety disorder, unspecified; E78.5 Hyperlipidemia, unspecified; E11.9 Type 2 diabetes mellitus without complications; I10 Essential (primary) hypertension; J45.40 Moderate persistent asthma, uncomplicated; Z87.891 Personal history of nicotine dependence
CPT/HCPCS: 87635

== ENCOUNTER 2023-04-02 16:26 | Inpatient (IN) | payer OTHER ==
[2023-04-02 17:05] VITALS: BMI 24.3
[2023-04-02] MEDS ORDERED: NALOXONE HCL (KLOXXADO) 8 MG SPRAY NS PRN (18:40)
[2023-04-02] MEDS ORDERED: guaiFENesin 600 MG TABLET.ER (FP) PO PRN (18:40)
[2023-04-02] MEDS ORDERED: BENZOCAINE/MENTHOL (CHLORASEPTIC ) LOZENGE MM PRN (18:40)
[2023-04-02] MEDS ORDERED: IBUPROFEN 600 MG TABLET (FP) PO PRN (18:40)
[2023-04-02] MEDS ORDERED: IBUPROFEN 400 MG TABLET (FP) PO PRN (18:40)
[2023-04-02] MEDS ORDERED: LOPERAMIDE HCL 2 MG CAPSULE PO PRN (18:40)
[2023-04-02] MEDS ORDERED: BISMUTH SUBSALICYLATE 524 MG/30 ML PO PRN (18:40)
[2023-04-02] MEDS ORDERED: MAGNESIUM HYDROX 2400MG/30ML ORAL SUSPENSION 30 ML CUP PO PRN (18:40)
[2023-04-02] MEDS ORDERED: POLYETHYLENE GLYCOL (HEALTHYLAX) 3350 17 GM PACKET PO PRN (18:40)
[2023-04-02] MEDS ORDERED: chlordiazePOXIDE HCL 25 MG CAPSULE PO PRN (18:40)
[2023-04-02] MEDS ORDERED: NALOXONE HCL 0.4 MG/ML VIAL IM PRN (18:40)
[2023-04-02] MEDS ORDERED: hydrOXYzine PAMOATE 25 MG CAPSULE (FP) PO PRN (18:40)
[2023-04-02] MEDS ORDERED: DICYCLOMINE HCL 10 MG CAPSULE PO PRN (18:40)
[2023-04-02] MEDS ORDERED: ONDANSETRON *ODT* 4 MG TABLET SL PRN (18:40)
[2023-04-02] MEDS ORDERED: BENZONATATE 200 MG CAPSULE PO PRN (18:40)
[2023-04-02] MEDS: MELATONIN 5 MG TABLETS PO SCH (22:37)
[2023-04-02] MEDS: THIAMINE HCL 100 MG TABLET (FP) PO SCH (22:37)
[2023-04-02] MEDS: chlordiazePOXIDE HCL 25 MG CAPSULE PO SCH (22:38)
[2023-04-03] MEDS: chlordiazePOXIDE HCL 25 MG CAPSULE PO SCH ×4 (05:50→23:09)
[2023-04-03] MEDS: PRENATAL VITAMINS W/ FOLIC ACID TABLET (FP) PO SCH (10:29)
[2023-04-03] MEDS: ACETAMINOPHEN 325 MG TABLET (FP) PO PRN ×2 (10:32→17:56)
[2023-04-03] MEDS: METHOCARBAMOL 500 MG TABLET PO PRN (10:32)
[2023-04-03] MEDS: MAG HYDROX/AL HYDROX/SIMETH 30 ML UNIT-DOSE CUP PO PRN ×2 (10:33→18:00)
[2023-04-03] MEDS: MELATONIN 5 MG TABLETS PO SCH (23:09)
[2023-04-03] MEDS: THIAMINE HCL 100 MG TABLET (FP) PO SCH (23:09)
[2023-04-04] MEDS ORDERED: chlordiazePOXIDE HCL 25 MG CAPSULE PO SCH (05:00)
[2023-04-04] MEDS: diazePAM 5 MG TABLET PO SCH ×4 (05:55→22:49)
[2023-04-04] MEDS: METHOCARBAMOL 500 MG TABLET PO PRN (06:42)
[2023-04-04] MEDS ORDERED: ALBUTEROL SO4 HFA INHALER IH PRN (08:46)
[2023-04-04] MEDS: amLODIPine BESYLATE 5 MG TABLET (FP) PO SCH (10:28)
[2023-04-04] MEDS: FAMOTIDINE 20 MG TABLET PO SCH ×2 (10:28→22:49)
[2023-04-04] MEDS: PRENATAL VITAMINS W/ FOLIC ACID TABLET (FP) PO SCH (10:28)
[2023-04-04] MEDS: THIAMINE HCL 100 MG TABLET (FP) PO SCH (22:49)
[2023-04-04] MEDS: MELATONIN 5 MG TABLETS PO SCH (22:49)
[2023-04-05] MEDS ORDERED: chlordiazePOXIDE HCL 10 MG CAPSULE PO PRN
[2023-04-05] MEDS ORDERED: chlordiazePOXIDE HCL 10 MG CAPSULE PO SCH (05:00)
[2023-04-05] MEDS: diazePAM 5 MG TABLET PO SCH ×2 (06:26→13:26)
[2023-04-05 09:47] VITALS: BP 132/82; PULSE 97; RESP 18; TEMP 97.3
[2023-04-05] MEDS: PRENATAL VITAMINS W/ FOLIC ACID TABLET (FP) PO SCH (10:40)
[2023-04-05] MEDS: amLODIPine BESYLATE 5 MG TABLET (FP) PO SCH (10:40)
[2023-04-05] MEDS: FAMOTIDINE 20 MG TABLET PO SCH (10:40)
[2023-04-06] MEDS ORDERED: chlordiazePOXIDE HCL 10 MG CAPSULE PO SCH (05:00)
[2023-04-06] MEDS ORDERED: diazePAM 5 MG TABLET PO SCH (06:00)
[2023-04-07] MEDS ORDERED: chlordiazePOXIDE HCL 10 MG CAPSULE PO ONE (05:00)
[2023-04-07] MEDS ORDERED: diazePAM 5 MG TABLET PO ONE (06:00)
== END 2023-04-05 11:30 | disposition home or self-care (01) | DRG 774 ==
LOC: YASAS 16:26 → Y6N 19:11
PROVIDERS: ADMIT Allergy & Immunology; ATTEND Surgery
PROC: HZ2ZZZZ Detoxification Services for Substance Abuse Treatment (ICD-10-PCS; principal; 2023-04-02)
DX: F10.230 Alcohol dependence with withdrawal, uncomplicated (principal); F14.20 Cocaine dependence, uncomplicated; F17.210 Nicotine dependence, cigarettes, uncomplicated; F31.9 Bipolar disorder, unspecified; I10 Essential (primary) hypertension; J45.20 Mild intermittent asthma, uncomplicated; K21.9 Gastro-esophageal reflux disease without esophagitis; E78.2 Mixed hyperlipidemia; M54.50 Low back pain, unspecified; G89.29 Other chronic pain; Z86.39 Personal history of other endocrine, nutritional and metabolic disease
CPT/HCPCS: 87635; 87811

== ENCOUNTER 2023-11-24 15:02 | Inpatient (IN) | payer OTHER ==
[2023-11-24 15:37] VITALS: BMI 27.8
[2023-11-24] MEDS ORDERED: ACETAMINOPHEN 325 MG TABLET (FP) PO PRN (18:04)
[2023-11-24] MEDS ORDERED: NALOXONE (NARCAN) HCL 4 MG/0.1 ML SPRAY NS PRN (18:04)
[2023-11-24] MEDS ORDERED: MAG HYDROX/AL HYDROX/SIMETH 30 ML UNIT-DOSE CUP PO PRN (18:04)
[2023-11-24] MEDS ORDERED: BENZOCAINE/MENTHOL (CHLORASEPTIC ) LOZENGE MM PRN (18:04)
[2023-11-24] MEDS ORDERED: IBUPROFEN 400 MG TABLET (FP) PO PRN (18:04)
[2023-11-24] MEDS ORDERED: POLYETHYLENE GLYCOL (HEALTHYLAX) 3350 17 GM PACKET PO PRN (18:04)
[2023-11-24] MEDS ORDERED: NALOXONE HCL 0.4 MG/ML VIAL IM PRN (18:04)
[2023-11-24] MEDS ORDERED: LOPERAMIDE HCL 2 MG CAPSULE PO PRN (18:04)
[2023-11-24] MEDS ORDERED: guaiFENesin 600 MG TABLET.ER (FP) PO PRN (18:04)
[2023-11-24] MEDS ORDERED: BENZONATATE 200 MG CAPSULE PO PRN (18:04)
[2023-11-24] MEDS ORDERED: MAGNESIUM HYDROX 2400MG/30ML ORAL SUSPENSION 30 ML CUP PO PRN (18:04)
[2023-11-24] MEDS ORDERED: hydrOXYzine PAMOATE 25 MG CAPSULE (FP) PO PRN (18:04)
[2023-11-24] MEDS: TUBERCULIN PPD 5 TU/0.1ML SYRINGE (IN PATIENT USE ONLY) ID ONE (21:17)
[2023-11-24] MEDS: MELATONIN 5 MG TABLETS PO SCH (21:18)
[2023-11-24] MEDS: THIAMINE 100 MG TABLET PO SCH (21:18)
[2023-11-24] MEDS: IBUPROFEN 600 MG TABLET (FP) PO PRN (21:19)
[2023-11-24 23:42] LABS: EPI CELLS 15 /uL (0-25.1); HYALINE CASTS 8 /uL (0-3.1); URINE APPEARANCE TURBID; URINE BACTERIA 12 /uL (0-1359); URINE BILIRUBIN NEGATIVE (NEGATIVE); URINE COLOR YELLOW; URINE GLUCOSE (UA) NEGATIVE (NEGATIVE); URINE KETONE TRACE (NEGATIVE); URINE LEUK ESTERASE TRACE (NEGATIVE); URINE NITRITE NEGATIVE (NEGATIVE); URINE PROTEIN NEGATIVE (NEGATIVE); URINE RBC 6 /uL (0-23.9); URINE WBC 22 /uL (0-25.8)
[2023-11-25 09:21] LABS: HEMATOCRIT 40.9 % (35.4-49); HEMOGLOBIN 13.9 GM/dL (11.7-16.9); MCH 29.3 pg (25.7-33.7); MCHC 33.9 g/dl (32.0-35.9); MEAN CELL VOLUME 86.5 fl (80-96); MEAN PLT VOLUME 9.3 fl (7.5-11.1); PLATELET COUNT 214 10^3/uL (134-434); RBC 4.73 M/mm3 (4.00-5.60); RDW 14.1 % (11.9-15.9); WHITE BLOOD COUNT 6.8 K/mm3 (4.0-10.0)
[2023-11-25 09:28] LABS: CHLORIDE 109 mmol/L (98-107); POTASSIUM 4.3 mmol/L (3.5-5.1); SODIUM 140 mmol/L (136-145)
[2023-11-25 09:33] LABS: CALCIUM 8.7 mg/dL (8.5-10.1)
[2023-11-25 09:34] LABS: ALBUMIN 3.6 g/dl (3.4-5.0); ANION GAP 8 mmol/L (4-13); BLOOD UREA NITROGEN 17.2 mg/dL (7-18); CO2 23 mmol/L (21-32); GLUCOSE,RANDOM 95 mg/dL (74-106)
[2023-11-25 09:35] LABS: SGPT/ALT 18 U/L (13-61)
[2023-11-25 09:36] LABS: SGOT/AST 17 U/L (15-37)
[2023-11-25 09:37] LABS: BILIRUBIN,TOTAL 0.6 mg/dL (0.2-1); CREATININE 0.7 mg/dL (0.55-1.3); TOT PROT 6.7 g/dl (6.4-8.2)
[2023-11-25 09:38] LABS: ALK PHOS 76 U/L (45-117)
[2023-11-25] MEDS: FAMOTIDINE 20 MG TABLET PO SCH (09:46)
[2023-11-25] MEDS: amLODIPine BESYLATE 5 MG TABLET (FP) PO SCH (09:46)
[2023-11-25] MEDS: PRENATAL VITAMINS W/ FOLIC ACID TABLET (FP) PO SCH (09:47)
[2023-11-25] MEDS ORDERED: amLODIPine BESYLATE 5 MG TABLET (FP) PO SCH (10:00)
[2023-11-25] MEDS: ARIPiprazole 5 MG TABLET PO SCH (12:19)
[2023-11-25] MEDS: traZODone HCL 50 MG TABLET (FP) PO SCH (22:03)
[2023-11-26] MEDS: ALBUTEROL SO4 HFA INHALER IH PRN (10:12)
[2023-11-28 07:09] VITALS: TEMP 97.8
[2023-11-28 10:10] VITALS: BP 129/82; PULSE 75; RESP 17
== END 2023-11-28 10:35 | disposition home or self-care (01) | DRG 772 ==
LOC: YASAS 15:02 → Y3W 17:24 → Y3NR 17:32 → Y3E 11-25 12:53
PROVIDERS: ADMIT Psychiatry & Neurology Pain Medicine; ATTEND Psychiatry & Neurology Pain Medicine
PROC: HZ42ZZZ Group Counseling for Substance Abuse Treatment, Cognitive-Behavioral (ICD-10-PCS; principal; 2023-11-24)
DX: F10.20 Alcohol dependence, uncomplicated (principal); F31.9 Bipolar disorder, unspecified; E11.9 Type 2 diabetes mellitus without complications; I10 Essential (primary) hypertension; J45.909 Unspecified asthma, uncomplicated; K21.9 Gastro-esophageal reflux disease without esophagitis; M54.50 Low back pain, unspecified; G89.29 Other chronic pain
CPT/HCPCS: 36415; 80053; 80305; 80307; 81003; 82962; 85027; 86780; 87811